=== PATIENT | male | born 1940 | race Hispanic/Latino ===

== ENCOUNTER 2019-02-23 16:21 | Inpatient (IN) | payer MEDICARE, OTHER ==
[2019-02-23] MEDS ORDERED: methylPREDNISolone Sod Succinate 125 MG/2 ML INJ IV ONE (16:31)
[2019-02-23] MEDS ORDERED: IPRATROPIUM 0.02% NEBU 2.5 ML IH ONE ×2 (16:31→17:29)
[2019-02-23] MEDS ORDERED: ALBUTEROL 2.5 MG/3 ML NEBU IH ONE ×2 (16:31→17:29)
[2019-02-23] MEDS ORDERED: MAGNESIUM SULFATE 2 GM/50 ML BAG IV ONE (16:31)
--- NOTE | 2019-02-23 16:35 | Event Note ---
Date: 02/23/19 78-year-old gentleman presenting with EMS for shortness of breath, cough and wheezing. Speaking in full sentences and denies physical pain. He is on systemic anticoagulation, reportedly eliquis As per verbal report from EMS, hypoxic in the field which improved with a nonrebreather. We will obtain basic laboratory studies, x-ray the chest, rectal temperature, EKG, this patient on BiPAP, initiate supportive care. Discussed plan of care with patient who verbalizes understanding and is amenable to this plan of care. Vital Signs 02/23/19 16:25 Pulse Rate 120 H Respiratory 30 H Rate Blood Pressure 162/122 O2 Sat by Pulse 98 Oximetry
[2019-02-23 16:53] LABS: Basophils # (Auto) 0.1 K/mm3 (0.0-0.1); Basophils % (Auto) 0.8 % (0.0-1.8); Eosinophils # (Auto) 0.3 K/mm3 (0.0-0.4); Eosinophils % (Auto) 3.3 % (0.0-4.3); Hematocrit 43.4 % (35.5-45.6); Hemoglobin 13.8 gm/dl (11.8-15.2); Lymphocytes # (Auto) 1.2 K/mm3 (1.2-5.4); Lymphocytes % (Auto) 14.5 % (13.4-35.0); Mean Corpuscular HGB Conc 32 % (32-34); Mean Corpuscular Volume 94 fl (84-94); Monocytes # (Auto) 0.4 K/mm3 (0.0-0.8); Monocytes % (Auto) 5.1 % (0.0-7.3); Platelet Count 242 K/mm3 (140-440); Red Blood Count 4.64 M/mm3 (3.65-5.03); Red Cell Distribution Width 17.3 % (13.2-15.2)
[2019-02-23 17:06] LABS: Partial Thromboplastin Time 30.8 Sec. (24.2-36.6)
[2019-02-23 17:07] LABS: INR 1.6 (0.87-1.13)
[2019-02-23 17:20] LABS: Albumin 3.9 g/dL (3.9-5); Calcium 9.5 mg/dL (8.4-10.2)
--- NOTE | 2019-02-23 17:32 | XRay Report ---
CHEST 1 VIEW 02/23/2019 4:36 PM INDICATION / CLINICAL INFORMATION: Dyspnea. COMPARISON: None available. FINDINGS: SUPPORT DEVICES: None. HEART / MEDIASTINUM: Cardiomegaly. LUNGS / PLEURA: There is bilateral perihilar predominant parenchymal opacification likely reflecting pulmonary edema. No pneumothorax. ADDITIONAL FINDINGS: No significant additional findings. IMPRESSION: 1. Findings suggesting probable CHF as described. Signer Name: Adair Pisano MD Signed: 02/23/2019 5:27 PM Workstation Name: [id number]
--- NOTE | 2019-02-23 18:49 | Emergency Department Report ---
HPI - General Chief Complaint: Dyspnea/Respdistress Time Seen by Provider: 02/23/19 17:20 - HPI HPI: Room 23 The pt is a 78 y/o M p/w a cc of SOB. The pt has a h/o COPDand states he's been SOB x 2-3 days. The pt states his sxs began to worsen last pm. Pt denies CP, cough or fever. In the ED the pt was placed on Bipap and experienced improvement. ED Past Medical Hx - Past Medical History Previous Medical History?: Yes Hx Hypertension: Yes Hx Congestive Heart Failure: Yes Hx Diabetes: Yes Hx COPD: Yes Additional medical history: AFIB - Surgical History Past Surgical History?: No Additional Surgical History: hernia - Family History Family history: no significant - Social History Smoking Status: Former Smoker (none x 1967) Substance Use Type: None ED Review of Systems ROS: Stated complaint: MEHRDAD Other details as noted in HPI Constitutional: denies: fever Eyes: denies: eye pain ENT: denies: throat pain Respiratory: shortness of breath. denies: cough Cardiovascular: denies: chest pain Endocrine: no symptoms reported Gastrointestinal: denies: abdominal pain Genitourinary: denies: dysuria Musculoskeletal: denies: back pain Neurological: denies: headache Physical Exam - Physical Exam Vital Signs: Vital Signs 02/23/19 02/23/19 02/23/19 16:25 16:38 16:45 Pulse Rate 120 H 109 H Pulse Rate [ Bilateral] Respiratory 30 H 30 H 19 Rate Respiratory Rate [Bilateral ] Blood Pressure 162/122 Blood Pressure 164/105 [Left] O2 Sat by Pulse 100 98 94 Oximetry 02/23/19 02/23/19 02/23/19 16:50 17:08 17:55 Pulse Rate 98 H 93 H Pulse Rate [ 123 H Bilateral] Respiratory 24 27 H Rate Respiratory 22 Rate [Bilateral ] Blood Pressure 135/86 Blood Pressure 141/98 [Left] O2 Sat by Pulse 100 98 Oximetry 02/23/19 02/23/19 17:58 18:22 Pulse Rate 94 H Pulse Rate [ 89 Bilateral] Respiratory 26 H Rate Respiratory 23 Rate [Bilateral ] Blood Pressure Blood Pressure 140/97 [Left] O2 Sat by Pulse 95 Oximetry Physical Exam: GEN: WD WN sitting on stretcher with Bipap in place HEENT: EOMI, NCAT NECK: Trachea midline, no stridor CV: rrr no m/r/g PULM: faint exp wheezes bilat ABD: S/NT/ND +BS SKIN: No diaphoresis NEURO: GCS 15 MS: no deformity ED Course Vital Signs 02/23/19 02/23/19 02/23/19 16:25 16:38 16:45 Pulse Rate 120 H 109 H Pulse Rate [ Bilateral] Respiratory 30 H 30 H 19 Rate Respiratory Rate [Bilateral ] Blood Pressure 162/122 Blood Pressure 164/105 [Left] O2 Sat by Pulse 100 98 94 Oximetry 02/23/19 02/23/19 02/23/19 16:50 17:08 17:55 Pulse Rate 98 H 93 H Pulse Rate [ 123 H Bilateral] Respiratory 24 27 H Rate Respiratory 22 Rate [Bilateral ] Blood Pressure 135/86 Blood Pressure 141/98 [Left] O2 Sat by Pulse 100 98 Oximetry 02/23/19 02/23/19 17:58 18:22 Pulse Rate 94 H Pulse Rate [ 89 Bilateral] Respiratory 26 H Rate Respiratory 23 Rate [Bilateral ] Blood Pressure Blood Pressure 140/97 [Left] O2 Sat by Pulse 95 Oximetry ED Medical Decision Making - Lab Data Result diagrams: 02/23/19 16:37 02/23/19 16:37 - Radiology Data Radiology results: report reviewed (CXR), image reviewed (CXR) interpreted by me: CXR- CM. no ptx [address] [address] XRay Report Signed Patient: YAKELIN KELSEY MR#: [id number] 0 : 1940 Acct:[id number] Age/Sex: 78 / M ADM Date: 02/23/19 Loc: ED Attending Dr: Ordering Physician: AGUSTO RASHID MD Date of Service: 02/23/19 Procedure(s): XR chest 1V ap Accession Number(s): [id number] cc: AGUSTO RASHID MD Fluoro Time In Minutes: CHEST 1 VIEW 02/23/2019 4:36 PM INDICATION / CLINICAL INFORMATION: Dyspnea. COMPARISON: None available. FINDINGS: SUPPORT DEVICES: None. HEART / MEDIASTINUM: Cardiomegaly. LUNGS / PLEURA: There is bilateral perihilar predominant parenchymal opacification likely reflecting pulmonary edema. No pneumothorax. ADDITIONAL FINDINGS: No significant additional findings. IMPRESSION: 1. Findings suggesting probable CHF as described. Signer Name: Adair Pisano MD Signed: 02/23/2019 5:27 PM Workstation Name: [id number] Transcribed By: GAYLE Dictated By: Adair Pisano MD Electronically Authenticated By: Adair Pisano MD Signed Date/Time: 02/23/191726 DD/ 26 TD/TT: - Differential Diagnosis COPD exacerbation, CHF exacerbation Critical care attestation.: If time is entered above; I have spent that time in minutes in the direct care of this critically ill patient, excluding procedure time. ED Disposition Clinical Impression: Shortness of breath, CHF exacerbation, COPD (chronic obstructive pulmonary disease), Hyperkalemia, Renal insufficiency Disposition: OP ADMIT IP TO THIS HOSP Is pt being admited?: Yes Does the pt Need Aspirin: Yes Condition: Fair Instructions: Chronic Obstructive Pulmonary Disease (ED) Time of Disposition: 18:52 (Hospitalist paged (Dr Dickinson))
[2019-02-23] MEDS ORDERED: FUROSEMIDE 40 MG/4 ML INJ IV ONE (18:57)
--- NOTE | 2019-02-23 20:31 | History and Physical Report ---
History of Present Illness Chief complaint: I cant breathe too good History of present illness: 78 YO Male with HTN, DM, COPD, Atrial Fib, CHF, Obesity Hypoventilation presents to ED for evaluation. Pt has experienced shortness of breath over the past 3 days with persistent symptoms over the same time frame. Pt acknowledges worsening shortness of breath, increased productive cough with clear sputum, and increased nebulizer use without relief. EMS notified, and upon arrival the patient was found to be in distress with a pulse oximetry of 80% on room air. Pt placed on supplemental oxygen and transported to [facility]. Pt seen and evaluated in ED and treated with repeated nebulizer therapy, with persistent symptoms as well as pulse of oximetry of 89%. Pt found to have Acute Hypoxemic Respiratory Failure and placed on NIPPV. Pt admitted to [facility] unit and treated with IV steroid therapy as well as empiric IV antibiotic therapy. Pt is short of breath and on BIPAP at time of my evaluation and is unable to provide detailed history to to inability to speak in complete sentences. No prior admissions for review. No medication listed for reconciliation at time of admission. Past History Past Medical History: other (see HPI) Past Surgical History: hernia repair Social history: single. denies: smoking, alcohol abuse, prescription drug abuse Family history: diabetes, hypertension Medications and Allergies Allergies Allergy/AdvReac Type Severity Reaction Status Date / Time gabapentin [From Gabarone] Allergy Unknown Verified 02/23/19 16:33 Review of Systems All systems: negative Constitutional: other (D) Respiratory: shortness of breath Exam - Constitutional Vitals: Temp Pulse Resp BP Pulse Ox 107 H 24 164/103 97 02/23/19 19:55 02/23/19 19:55 02/23/19 19:55 02/23/19 19:55 General appearance: Present: mild distress, cachectic - EENT Eyes: Present: PERRL ENT: hearing intact, clear oral mucosa - Neck Neck: Present: supple, normal ROM - Respiratory Respiratory effort: labored, accessory muscle use, stridor Respiratory: bilateral: diminished, rhonchi - Cardiovascular Heart Sounds: Present: S1 & S2. Absent: rub, click - Extremities Extremities: pulses symmetrical, No edema Peripheral Pulses: within normal limits - Abdominal General gastrointestinal: Present: soft, non-tender, non-distended, normal bowel sounds Male genitourinary: Present: normal - Integumentary Integumentary: Present: clear, warm, dry - Musculoskeletal Musculoskeletal: generalized weakness - Psychiatric Psychiatric: intact judgment & insight, agitated - Neurologic Neurologic: CNII-XII intact, moves all extremities Results - Labs CBC & Chem 7: 02/23/19 16:37 02/23/19 16:37 Labs: Abnormal lab results 02/23/19 02/23/19 02/23/19 Range/Units 16:37 16:37 16:37 RDW 17.3 H (13.2-15.2) % Seg Neutrophils % 76.3 H (40.0-70.0) % PT (12.2-14.9) Sec. INR (0.87-1.13) Potassium 5.3 H (3.6-5.0) mmol/L BUN 27 H (9-20) mg/dL Creatinine 1.9 H (0.8-1.5) mg/dL Glucose 301 H (75-100) mg/dL Lactic Acid 2.40 H* (0.7-2.0) mmol/L Magnesium 2.50 H (1.7-2.3) mg/dL Alkaline Phosphatase 144 H (35-129) units/L Total Creatine Kinase (55-170) units/L 02/23/19 02/23/19 Range/Units 16:37 16:37 RDW (13.2-15.2) % Seg Neutrophils % (40.0-70.0) % PT 18.8 H (12.2-14.9) Sec. INR 1.60 H (0.87-1.13) Potassium (3.6-5.0) mmol/L BUN (9-20) mg/dL Creatinine (0.8-1.5) mg/dL Glucose (75-100) mg/dL Lactic Acid (0.7-2.0) mmol/L Magnesium 2.50 H (1.7-2.3) mg/dL Alkaline Phosphatase (35-129) units/L Total Creatine Kinase 50 L (55-170) units/L Assessment and Plan - Patient Problems (1) Acute hypoxemic respiratory failure Current Visit: Yes Status: Acute Plan to address problem: Admit to [facility] unit, ABG, Chest X ray, pulse oximetry, NIPPV, nebulizer therapy, bnp. (2) COPD exacerbation Current Visit: Yes Status: Acute Plan to address problem: supplemental oxygen, chest x ray, nebulizer therapy, NIPPV, Iv steroid therapy, empiric antibiotic therapy. (3) HTN (hypertension) Current Visit: Yes Status: Acute Qualifiers: Hypertension type: essential hypertension Qualified Code(s): I10 - Essential (primary) hypertension Plan to address problem: Monitor BP q shift, continue medical management. (4) Diabetes Current Visit: Yes Status: Acute Plan to address problem: ADA diet, insulin, accu check, hypoglycemia protocol (5) Atrial fibrillation Current Visit: Yes Status: Acute Qualifiers: Atrial fibrillation type: unspecified Qualified Code(s): I48.91 - Unspecified atrial fibrillation Plan to address problem: Rate control, supportive care, remote telemetry monitoring, resume home medic ation. (6) CHF exacerbation Current Visit: No Status: Acute Qualifiers: Heart failure type: systolic Qualified Code(s): I50.23 - Acute on chronic systolic (congestive) heart failure Plan to address problem: BNP, supplemental oxygen, strict I/O, daily weight, bnp, thyroid panel, magnesium level, pulse oximetry, diuresis, afterload reduction, (7) DELMIS (acute kidney injury) Current Visit: Yes Status: Acute Plan to address problem: IVF resuscitation therapy, repeat bmp, monitor serum creatnine. (8) DVT prophylaxis Current Visit: Yes Status: Acute Plan to address problem: SCD to BLE while in bed, supportive care.
[2019-02-23] MEDS ORDERED: ONDANSETRON 4 MG/2 ML INJ IV PRN (20:33)
[2019-02-23] MEDS ORDERED: ACETAMINOPHEN 325 MG TAB PO PRN (20:33)
[2019-02-23] MEDS ORDERED: METOPROLOL TARTRATE 5 MG/5 ML INJ IV ONE ×2 (21:44→21:51)
[2019-02-23 22:54] LABS: Free T4 (Free Thyroxine) 0.81 ng/dL (0.76-1.46)
[2019-02-24] MEDS: INSULIN REGULAR, HUMAN 100 UNITS/1 ML SUB-Q SCH ×5 (00:53→23:18)
[2019-02-24] MEDS: FAMOTIDINE 10 MG TAB PO SCH ×3 (00:53→21:11)
[2019-02-24] MEDS: methylPREDNISolone Sod Succinate 40 MG/1 ML INJ IV SCH ×2 (01:07→12:36)
[2019-02-24] MEDS: METOPROLOL TARTRATE 25 MG TAB PO SCH ×3 (02:08→21:09)
[2019-02-24] MEDS: traMADol 50 MG TAB PO PRN ×2 (02:09→22:48)
[2019-02-24 05:16] LABS: Albumin 3.9 g/dL (3.9-5); Calcium 9.1 mg/dL (8.4-10.2)
[2019-02-24] MEDS ORDERED: METOPROLOL TARTRATE 25 MG TAB PO SCH ×2 (10:00→22:00)
[2019-02-24] MEDS: FINASTERIDE 5 MG TAB PO SCH (12:19)
[2019-02-24] MEDS: APIXABAN 5 MG TAB PO SCH ×2 (12:19→21:10)
[2019-02-24] MEDS: CHOLECALCIFEROL (VIT D3) 400 UNIT TAB PO SCH ×2 (12:19→21:11)
[2019-02-24] MEDS: FUROSEMIDE 40 MG TAB PO SCH (12:20)
[2019-02-24] MEDS: ASPIRIN 81 MG TAB CHEW PO SCH (12:20)
[2019-02-24] MEDS: TRIAMCINOLONE 0.1% CREAM 15 GM TP SCH ×2 (12:20→21:15)
[2019-02-24] MEDS: sulfaSALAzine 500 MG TAB PO SCH ×2 (12:20→21:09)
[2019-02-24] MEDS: AZITHROMYCIN 500 MG in SODIUM CHLORIDE 0.9% 250ML 250 ML IV SCH (12:41)
[2019-02-24] MEDS ORDERED: POLYETHYLENE GLYCOL PO PRN (13:27)
[2019-02-24] MEDS ORDERED: TRAMADOL HCL 50 MG PO SCH (13:30)
[2019-02-24] MEDS ORDERED: NON-FORMULARY EACH (Amlodipine 10 MG) PO SCH (13:30)
[2019-02-24] MEDS ORDERED: NON-FORMULARY EACH (Aspirin Baby Chew Tab 81 MG) PO SCH (13:30)
--- NOTE | 2019-02-24 13:54 | Progress Note ---
Assessment and Plan / Acute hypoxemic respiratory failure due to COPD and CHF exacerbation supplemental O2, pulse oximetry, NIPPV as needed, nebulizer therapy, / COPD exacerbation treat with supplemental oxygen, as needed and bedtime nebulizer therapy, NIPPV, Iv steroid therapy, empiric antibiotic therapy. / HTN (hypertension) Monitor BP q shift, continue medical management. Resume home meds / Diabetes ADA diet, insulin subqu, accu check, hypoglycemia protocol check a1c / Atrial fibrillation, chronic Rate control, supportive care, remote telemetry monitoring, resume home medication. start on eliquis /CHF exacerbation 2 d echo, supplemental oxygen, strict I/O, daily weight, bnp, thyroid panel, magnesium level, pulse oximetry, diuresis, afterload reduction, / DELMIS (acute kidney injury) - cardiorenal syndrome? cont diuresis, repeat bmp, monitor serum creatnine. consult nephro if no improvement / DVT prophylaxis SCD to BLE while in bed, supportive care. Subjective Date of service: 02/24/19 Interval history: patient seen and examined denies any chest pain BG >400 today breathing improved Objective - Constitutional Vitals: Vital Signs - 12hr 02/24/19 02/24/19 02/24/19 02:08 02:36 06:37 Temperature 97.9 F Pulse Rate 125 H 63 72 Respiratory 17 Rate Blood Pressure 137/94 151/88 O2 Sat by Pulse 97 99 Oximetry 02/24/19 02/24/19 02/24/19 07:29 07:53 09:17 Temperature 97.5 F L Pulse Rate 67 73 Respiratory 18 27 H Rate Blood Pressure 119/82 O2 Sat by Pulse 91 97 95 Oximetry General appearance: Present: mild distress, obese - EENT Eyes: PERRL, EOM intact ENT: hearing intact, clear oral mucosa Ears: bilateral: normal - Neck Neck: supple, normal ROM - Respiratory Respiratory effort: normal Respiratory: bilateral: diminished - Cardiovascular Rhythm: irregularly irregular Heart Sounds: Present: S1 & S2. Absent: gallop, rub Extremities: pulses intact, normal color, Full ROM Extremity abnormal: edema (trace) - Gastrointestinal General gastrointestinal: Present: soft, non-tender, non-distended, normal bowel sounds - Integumentary Integumentary: clear, warm, dry - Musculoskeletal Musculoskeletal: 1, strength equal bilaterally - Neurologic Neurologic: moves all extremities - Psychiatric Psychiatric: memory intact, appropriate mood/affect, intact judgment & insight - Labs CBC & Chem 7: 02/23/19 16:37 02/24/19 04:16 Labs: Abnormal lab results 02/23/19 02/23/19 02/23/19 Range/Units 16:37 16:37 16:37 RDW 17.3 H (13.2-15.2) % Seg Neutrophils % 76.3 H (40.0-70.0) % PT (12.2-14.9) Sec. INR (0.87-1.13) POC ABG pCO2 (35-45) Potassium 5.3 H (3.6-5.0) mmol/L BUN 27 H (9-20) mg/dL Creatinine 1.9 H (0.8-1.5) mg/dL Glucose 301 H (75-100) mg/dL POC Glucose (70-105) Hemoglobin A1c (4-6) % Lactic Acid 2.40 H* (0.7-2.0) mmol/L Magnesium 2.50 H (1.7-2.3) mg/dL Alkaline Phosphatase 144 H (35-129) units/L Total Creatine Kinase (55-170) units/L NT-Pro-B Natriuret Pep (0-900) pg/mL 02/23/19 02/23/19 02/23/19 Range/Units 16:37 16:37 16:37 RDW (13.2-15.2) % Seg Neutrophils % (40.0-70.0) % PT 18.8 H (12.2-14.9) Sec. INR 1.60 H (0.87-1.13) POC ABG pCO2 (35-45) Potassium (3.6-5.0) mmol/L BUN (9-20) mg/dL Creatinine (0.8-1.5) mg/dL Glucose (75-100) mg/dL POC Glucose (70-105) Hemoglobin A1c (4-6) % Lactic Acid (0.7-2.0) mmol/L Magnesium 2.50 H (1.7-2.3) mg/dL Alkaline Phosphatase (35-129) units/L Total Creatine Kinase 50 L (55-170) units/L NT-Pro-B Natriuret Pep 29944 H (0-900) pg/mL 02/23/19 02/23/19 02/24/19 Range/Units 21:45 23:59 04:16 RDW (13.2-15.2) % Seg Neutrophils % (40.0-70.0) % PT (12.2-14.9) Sec. INR (0.87-1.13) POC ABG pCO2 46.9 H (35-45) Potassium (3.6-5.0) mmol/L BUN 32 H (9-20) mg/dL Creatinine 2.0 H (0.8-1.5) mg/dL Glucose 422 H (75-100) mg/dL POC Glucose 398 H (70-105) Hemoglobin A1c (4-6) % Lactic Acid (0.7-2.0) mmol/L Magnesium (1.7-2.3) mg/dL Alkaline Phosphatase 132 H (35-129) units/L Total Creatine Kinase (55-170) units/L NT-Pro-B Natriuret Pep (0-900) pg/mL 02/24/19 02/24/19 02/24/19 Range/Units 07:36 11:39 11:54 RDW (13.2-15.2) % Seg Neutrophils % (40.0-70.0) % PT (12.2-14.9) Sec. INR (0.87-1.13) POC ABG pCO2 (35-45) Potassium (3.6-5.0) mmol/L BUN (9-20) mg/dL Creatinine (0.8-1.5) mg/dL Glucose (75-100) mg/dL POC Glucose 392 H 420 H (70-105) Hemoglobin A1c 7.5 H (4-6) % Lactic Acid (0.7-2.0) mmol/L Magnesium (1.7-2.3) mg/dL Alkaline Phosphatase (35-129) units/L Total Creatine Kinase (55-170) units/L NT-Pro-B Natriuret Pep (0-900) pg/mL
[2019-02-24] MEDS ORDERED: FINASTERIDE 5 MG TAB PO SCH (14:00)
[2019-02-24] MEDS ORDERED: POLYETHYLENE GLYCOL 3350 17 GM POWDER PO PRN (14:04)
[2019-02-24] MEDS ORDERED: ASPIRIN 81 MG TAB CHEW PO SCH (15:00)
[2019-02-24] MEDS: amLODIPine 10 MG TAB PO SCH (15:44)
[2019-02-24] MEDS ORDERED: INSULIN NPH, HUMAN 100 UNIT/1 ML SUB-Q SCH (17:00)
[2019-02-24] MEDS: PREGABALIN 25 MG CAP PO SCH (21:09)
[2019-02-24] MEDS ORDERED: NON-FORMULARY EACH (Atorvastatin 10 MG) PO SCH (22:00)
[2019-02-24] MEDS ORDERED: SULFASALAZINE 500 MG PO SCH (22:00)
[2019-02-24] MEDS ORDERED: PREGABALIN 25 MG CAP PO SCH (22:00)
[2019-02-24] MEDS ORDERED: CHOLECALCIFEROL (VIT D3) 400 UNIT TAB PO SCH (22:00)
[2019-02-24] MEDS ORDERED: NON-FORMULARY EACH (Eliquis 5 MG) PO SCH (22:00)
[2019-02-24] MEDS ORDERED: APIXABAN 5 MG TAB PO SCH (22:00)
[2019-02-24] MEDS ORDERED: ZOLPIDEM TARTRATE 5 MG PO SCH (22:00)
[2019-02-24] MEDS ORDERED: PREGABALIN 50 MG PO SCH (22:00)
[2019-02-24] MEDS ORDERED: VITAMIN D3 PO SCH (22:00)
[2019-02-24] MEDS ORDERED: NON-FORMULARY EACH (Metoprolol Tartrate 25 MG) PO SCH (22:00)
[2019-02-24] MEDS ORDERED: TRIAMCINOLONE ACETON 0.1% TP SCH (22:00)
[2019-02-24] MEDS: ZOLPIDEM 5 MG TAB PO PRN (22:51)
[2019-02-25] MEDS ORDERED: INSULIN GLARGINE HUM REC ANLOG 20 UNIT SUB-Q SCH (00:15)
[2019-02-25] MEDS: methylPREDNISolone Sod Succinate 40 MG/1 ML INJ IV SCH ×2 (00:38→14:24)
[2019-02-25 09:40] LABS: Calcium 9.2 mg/dL (8.4-10.2)
[2019-02-25] MEDS ORDERED: NON-FORMULARY EACH (Finasteride 5 MG) PO SCH (10:00)
--- NOTE | 2019-02-25 11:10 | Consultation ---
History of Present Illness - Reason for Consult Consult date: 02/25/19 acute renal failure - History of Present Illness The patient is a 78 YO male with history significant for Obeisty, DM type 2, HTN, COPD, Atrial Fib, CHF, ?BPH, CKD and Obesity Hypoventilation presented to [facility] ED on 02/23 with c/o worsening shortness of breath of 3 days duration. Pt acknowledges cough with increased clear sputum and increased nebulizer use without relief. EMS found him with pulse oximetry of 80% on room air. Pt found to have Acute Hypoxemic Respiratory Failure and placed on NIPPV. Pt admitted to [facility] unit for further management. He was told in the past that he has kidney problem. Patient denies any fever, chills, N, V, D, abd pain, dysuria, hematuria, cp, leg swelling dizziness, syncope or jaundice. Creatinine is 2.1 today. Nephrology was consulted for further evaluation. Past History Past Medical History: arrhythmia, COPD, diabetes, heart failure, hypertension, hyperlipidemia, renal failure, other (see HPI) Past Surgical History: hernia repair Social history: single. denies: smoking, alcohol abuse, prescription drug abuse Family history: diabetes, hypertension Medications and Allergies Allergies Allergy/AdvReac Type Severity Reaction Status Date / Time gabapentin [From Gabarone] Allergy Unknown Verified 02/23/19 16:33 Home Medications Medication Instructions Recorded Confirmed Last Taken Type Aspirin BABY CHEW TAB 81 mg PO QDAY 02/23/19 02/24/19 Unknown History AtorvaSTATin 10 mg PO QHS 02/23/19 02/24/19 Unknown History Eliquis 5 mg PO BID 02/23/19 02/24/19 Unknown History Finasteride 5 mg PO QDAY 02/23/19 02/24/19 Unknown History Furosemide 80 mg PO QDAY 02/23/19 02/24/19 Unknown History Mapap 650 mg PO Q4H PRN 02/23/19 02/24/19 Unknown History Metoprolol Tartrate 25 mg PO BID 02/23/19 02/24/19 Unknown History Polyethylene Glycol 3350 17 gram PO QDAY PRN 02/23/19 02/24/19 Unknown History Pregabalin 50 mg PO QHS 02/23/19 02/24/19 Unknown History Ranitidine HCl 150 mg PO QDAY 02/23/19 02/24/19 Unknown History Robafen Dm Cough Syrup 10 ml PO Q4H PRN 02/23/19 02/24/19 Unknown History Tramadol HCl 50 mg PO QDAY 02/23/19 02/24/19 Unknown History Triamcinolone Aceton 0.1% (Nf) 1 applic TP BID 02/23/19 02/24/19 Unknown History Vitamin D3 400 UNIT TAB 400 units PO BID 02/23/19 02/24/19 Unknown History Zolpidem Tartrate ER 5 mg PO QHS 02/23/19 02/24/19 Unknown History amLODIPine 10 mg PO QDAY 02/23/19 02/24/19 Unknown History sulfaSALAzine 500 mg PO BID 02/23/19 02/24/19 Unknown History Insulin Glargine,Hum.rec.anlog 40 units SUB-Q BID 02/24/19 02/24/19 02/22/19 History Lispro Insulin [HumaLOG] 34 unit SQ AC 02/24/19 02/24/19 02/22/19 History Active Meds: Active Medications Acetaminophen (Tylenol) 650 mg PO Q4H PRN PRN Reason: Pain MILD(1-3)/Fever >100.5/TRIMBLE Amlodipine Besylate (Amlodipine) 10 mg PO DAILY [facility] Last Admin: 02/24/19 15:44 Dose: Not Given Documented by: Apixaban (Eliquis) 5 mg PO BID [facility]; Protocol Last Admin: 02/24/19 21:10 Dose: 5 mg Documented by: Aspirin (Baby Aspirin) 81 mg PO QDAY [facility] Last Admin: 02/24/19 12:20 Dose: 81 mg Documented by: Atorvastatin Calcium (Atorvastatin) 10 mg PO QHS [facility] Last Admin: 02/24/19 21:10 Dose: 10 mg Documented by: Cholecalciferol (Vitamin D3) 400 unit PO BID [facility] Last Admin: 02/24/19 21:11 Dose: 400 unit Documented by: Famotidine (Pepcid) 10 mg PO BID [facility] Last Admin: 02/24/19 21:11 Dose: 10 mg Documented by: Finasteride (Proscar) 5 mg PO QDAY [facility] Last Admin: 02/24/19 12:19 Dose: 5 mg Documented by: Furosemide (Lasix) 80 mg PO QDAY [facility] Last Admin: 02/24/19 12:20 Dose: 80 mg Documented by: Azithromycin 500 mg/ Sodium (Chloride) 250 mls @ 250 mls/hr IV Q24HR [facility]; Protocol Stop: 02/28/19 10:59 Last Admin: 02/24/19 12:41 Dose: 250 mls/hr Documented by: Insulin Glargine (Lantus) 20 units SUB-Q BID [facility] Insulin Human Lispro (Humalog) 15 unit SUB-Q AC [facility] Insulin Human Regular (Humulin R) 0 units SUB-Q ACHS [facility]; Protocol Last Admin: 02/24/19 23:18 Dose: 8 units Documented by: Methylprednisolone Sodium Succinate (Solu-Medrol) 40 mg IV Q12H [facility] Last Admin: 02/25/19 00:38 Dose: Not Given Documented by: Metoprolol Tartrate (Metoprolol) 25 mg PO BID [facility] Last Admin: 02/24/19 21:09 Dose: Not Given Documented by: Ondansetron HCl (Zofran) 4 mg IV Q8H PRN PRN Reason: Nausea And Vomiting Polyethylene Glycol (Miralax 3350) 17 gm PO QDAY PRN PRN Reason: Constipation Pregabalin (Pregabalin) 50 mg PO QHS [facility] Last Admin: 02/24/19 21:09 Dose: 50 mg Documented by: Sodium Chloride (Sodium Chloride Flush Syringe 10 Ml) 10 ml IV BID [facility] Last Admin: 02/24/19 21:16 Dose: 10 ml Documented by: Sodium Chloride (Sodium Chloride Flush Syringe 10 Ml) 10 ml IV PRN PRN PRN Reason: LINE FLUSH Sulfasalazine (Azulfidine) 500 mg PO BID [facility] Last Admin: 02/24/19 21:09 Dose: 500 mg Documented by: Tramadol HCl (Ultram) 50 mg PO QDAY PRN PRN Reason: Pain, Moderate (4-6) Last Admin: 02/24/19 22:48 Dose: 50 mg Documented by: Triamcinolone Acetonide (Kenalog) 1 applic TP BID [facility] Last Admin: 02/24/19 21:15 Dose: 1 applic Documented by: Zolpidem Tartrate (Ambien) 5 mg PO QHS PRN PRN Reason: Sleep Last Admin: 02/24/19 22:51 Dose: 5 mg Documented by: Review of Systems Constitutional: no weight loss, no weight gain, no fever, no chills, no anorexia, no weakness Cardiovascular: orthopnea, shortness of breath, dyspnea on exertion, high blood pressure, no chest pain, no palpitations, no edema, no syncope, no lightheadedness, no leg edema Respiratory: cough, cough with sputum, shortness of breath, dyspnea on exertion, no hemoptysis Gastrointestinal: no abdominal pain, no nausea, no vomiting, no diarrhea, no melena Genitourinary Male: no dysuria, no hematuria Integumentary: no rash, no redness, no sores, no jaundice Neurological: no paralysis, no weakness, no convulsions, no aphasia, no change in speech, no change in mentation, no confusion, no memory loss Exam - Vital Signs Vital signs: Vital Signs Pulse Ox 95 02/23/19 16:22 - General Appearance General appearance: well-developed, well-nourished, appears stated age, obese, other (not in distress) EENT: ATNC, PERRL, hearing intact, vision intact Neck: Present: neck supple, trachea midline Respiratory: Clear to Ascultation Heart: S1S2, no murmurs Gastrointestinal: Present: normoactive bowel sounds, obese. Absent: tenderness, distended Integumentary: other (b/l leg scratch cody) Neurologic: no focal deficit, no asterixis, alert and oriented x3 Musculoskeletal: Present: other (no edema) Results - Lab Results 02/23/19 16:37 02/25/19 09:14 Most recent lab results Calcium 9.2 mg/dL (8.4-10.2) 02/25/19 09:14 Magnesium 2.50 mg/dL (1.7-2.3) H 02/23/19 16:37 Magnesium 2.50 mg/dL (1.7-2.3) H 02/23/19 16:37 - Image Kidney/bladder ultrasound: pending Assessment and Plan 1. Renal insufficiency: Likely CKD stage 3 / 4. Doubt DELMIS. Urine studies and Renal US ordered. Monitor renal function. Avoid nephrotoxic agents. Meds dosage based on GFR. 2. FEN: Volume overload, on Lasix. Monitor lytes. 3. Acute hypoxemic respiratory failure: Combination of due to COPD and CHF exacerbation. 4. CHF exacerbation: Strict I/O, daily weight, diuresis, afterload reduction. 5. chronic Atrial fibrillation: Rate control. Continue Eliquis. 6. HTN. 7. Diabetes mellitus type 2.
[2019-02-25] MEDS: sulfaSALAzine 500 MG TAB PO SCH ×2 (11:48→22:38)
[2019-02-25] MEDS: CHOLECALCIFEROL (VIT D3) 400 UNIT TAB PO SCH ×2 (11:49→22:38)
[2019-02-25] MEDS: FAMOTIDINE 10 MG TAB PO SCH ×2 (11:50→22:33)
[2019-02-25] MEDS: APIXABAN 5 MG TAB PO SCH ×2 (11:51→22:34)
[2019-02-25] MEDS: FUROSEMIDE 40 MG TAB PO SCH (11:51)
[2019-02-25] MEDS: amLODIPine 10 MG TAB PO SCH (11:51)
[2019-02-25] MEDS: ASPIRIN 81 MG TAB CHEW PO SCH (11:52)
[2019-02-25] MEDS: FINASTERIDE 5 MG TAB PO SCH (11:52)
[2019-02-25] MEDS: METOPROLOL TARTRATE 25 MG TAB PO SCH ×2 (11:53→22:35)
[2019-02-25] MEDS: traMADol 50 MG TAB PO PRN (11:53)
[2019-02-25] MEDS: INSULIN GLARGINE 100 UNITS/ML SUB-Q SCH ×2 (11:55→22:30)
[2019-02-25] MEDS: INSULIN LISPRO 100 UNIT/ML SUB-Q SCH ×3 (12:06→17:50)
[2019-02-25] MEDS: TRIAMCINOLONE 0.1% CREAM 15 GM TP SCH ×2 (12:09→22:30)
[2019-02-25] MEDS: INSULIN REGULAR, HUMAN 100 UNITS/1 ML SUB-Q SCH ×4 (14:10→22:31)
--- NOTE | 2019-02-25 15:27 | Progress Note ---
Assessment and Plan / Acute hypoxemic respiratory failure due to COPD and CHF exacerbation supplemental O2, pulse oximetry, NIPPV as needed, nebulizer therapy, / COPD exacerbation treat with supplemental oxygen, as needed and bedtime nebulizer therapy, NIPPV, Iv steroid therapy, empiric antibiotic therapy. / HTN (hypertension) Monitor BP q shift, continue medical management. Resume home meds / Diabetes cont ADA diet, insulin subqu, accu check, hypoglycemia protocol / Atrial fibrillation, chronic Rate control, supportive care, remote telemetry monitoring, resume home medication. start on eliquis /CHF exacerbation ordered 2 d echo, supplemental oxygen, strict I/O, daily weight, pulse oximetry, diuresis, afterload reduction, / DELMIS (acute kidney injury) - cardiorenal syndrome? vs CKD cont diuresis, repeat bmp, monitor serum creatnine. consulted nephro / DVT prophylaxis SCD to BLE while in bed, supportive care. Brief History: The patient is a 78 YO male with history significant for Obeisty, DM type 2, HTN, COPD, Atrial Fib, CHF, CKD and Obesity Hypoventilation presented to [facility] ED on 02/23 with c/o worsening shortness of breath of 3 days duration. EMS found him with pulse oximetry of 80% on room air. Pt found to have Acute Hypoxemic Respiratory Failure and placed on NIPPV. Pt admitted to [facility] unit for further management. Subjective Date of service: 02/25/19 Interval history: patient seen and examined denies any chest pain breathing improved, BG remained elevated Objective - Exam Narrative Exam: General appearance: Present: mild distress, obese - EENT Eyes: PERRL, EOM intact ENT: hearing intact, clear oral mucosa Ears: bilateral: normal - Neck Neck: supple, normal ROM - Respiratory Respiratory effort: normal Respiratory: bilateral: diminished - Cardiovascular Rhythm: irregularly irregular Heart Sounds: Present: S1 & S2. Absent: gallop, rub Extremities: pulses intact, normal color, Full ROM Extremity abnormal: edema (trace) - Gastrointestinal General gastrointestinal: Present: soft, non-tender, non-distended, normal bowel sounds - Integumentary Integumentary: clear, warm, dry - Musculoskeletal Musculoskeletal: 1, strength equal bilaterally - Neurologic Neurologic: moves all extremities - Psychiatric Psychiatric: memory intact, appropriate mood/affect, intact judgment & insight - Constitutional Vitals: Vital Signs - 12hr 02/25/19 02/25/19 08:04 09:14 Temperature 97.4 F L Pulse Rate 63 Respiratory 23 Rate Blood Pressure 141/93 O2 Sat by Pulse 100 95 Oximetry - Labs CBC & Chem 7: 02/23/19 16:37 02/25/19 09:14 Labs: Abnormal lab results 02/24/19 02/24/19 02/25/19 Range/Units 16:25 22:54 09:14 BUN 40 H (9-20) mg/dL Creatinine 2.1 H (0.8-1.5) mg/dL Glucose 251 H (75-100) mg/dL POC Glucose 447 H 412 H (70-105) 02/25/19 Range/Units 11:20 BUN (9-20) mg/dL Creatinine (0.8-1.5) mg/dL Glucose (75-100) mg/dL POC Glucose 332 H (70-105)
--- NOTE | 2019-02-25 16:15 | Ultrasound Report ---
ULTRASOUND RENAL INDICATION: Acute renal failure.. COMPARISON: No relevant prior imaging study available. FINDINGS: RIGHT KIDNEY: Size: 9.3 cm. Echogenicity: Mild Increased echogenicity. Cortical thickness: Normal. Stones: None. Hydronephrosis: None. Cyst or mass: None. LEFT KIDNEY: Size: 9.5 cm. Echogenicity: Mild Increased echogenicity. Cortical thickness: Normal. Stones: None. Hydronephrosis: None. Cyst or mass: None. Urinary Bladder: No significant abnormality. Free Fluid: None. Additional Findings: There is hepatosplenomegaly. The spleen measures 14.7 cm in length. The liver me asures 19.7 cm. IMPRESSION 1. Kidneys are mildly echogenic characteristic of medical renal disease. There is no hydronephrosis. 2. There is hepatosplenomegaly.. Signer Name: Dallas Dee MD Signed: 02/25/2019 4:11 PM Workstation Name: [id number]
[2019-02-25] MEDS: AZITHROMYCIN 500 MG in SODIUM CHLORIDE 0.9% 250ML 250 ML IV SCH (17:36)
[2019-02-25] MEDS: ZOLPIDEM 5 MG TAB PO PRN (22:30)
[2019-02-25] MEDS: PREGABALIN 25 MG CAP PO SCH (22:34)
[2019-02-26] MEDS: methylPREDNISolone Sod Succinate 40 MG/1 ML INJ IV SCH ×2 (00:42→12:56)
[2019-02-26] MEDS: INSULIN REGULAR, HUMAN 100 UNITS/1 ML SUB-Q SCH ×4 (08:12→23:04)
[2019-02-26] MEDS: INSULIN LISPRO 100 UNIT/ML SUB-Q SCH ×3 (08:14→17:50)
--- NOTE | 2019-02-26 09:03 | Progress Note ---
Assessment and Plan 1. Renal insufficiency: Likely CKD stage 3 / 4. Renal US negative for hydronephrosis. Urine studies ordered. Renal function is stable. Monitor renal function. Avoid nephrotoxic agents. Meds dosage based on GFR. 2. FEN: Volume overload, on Lasix. Monitor lytes. 3. Acute hypoxemic respiratory failure: Combination of due to COPD and CHF exacerbation. 4. CHF exacerbation: Strict I/O, daily weight, diuresis, afterload reduction. 5. Atrial fibrillation: Rate control. On Eliquis. 6. HTN. 7. Diabetes mellitus type 2. Examination: General appearance: well-developed, well-nourished, appears stated age, obese, not in distress HEENT: ATNC, BRETT, hearing intact, vision intact Neck: neck supple, trachea midline Respiratory: Clear to Ascultation Heart: S1S2, no murmurs Gastrointestinal: normoactive bowel sounds, not tender Integumentary: b/l leg scratch cody Neurologic: no focal deficit, no asterixis, alert and oriented x3 Ext: no edema Subjective Date of service: 02/26/19 Interval history: Patient was seen and examined at the bedside. Objective - Vital Signs Vital signs: Vital Signs - 12hr 02/25/19 02/26/19 02/26/19 22:00 00:00 01:42 Temperature Pulse Rate 89 78 89 Pulse Rate [ 107 H Left Radial] Respiratory 30 H Rate Blood Pressure Blood Pressure [Left] O2 Sat by Pulse 98 98 Oximetry 02/26/19 02/26/19 02:46 07:42 Temperature 98.6 F 97.5 F L Pulse Rate 90 Pulse Rate [ Left Radial] Respiratory 20 22 Rate Blood Pressure 128/90 Blood Pressure 145/95 [Left] O2 Sat by Pulse 98 Oximetry - Lab 02/23/19 16:37 02/26/19 05:53 Most recent lab results Calcium 9.0 mg/dL (8.4-10.2) 02/26/19 05:53 Phosphorus 3.80 mg/dL (2.5-4.5) 02/26/19 05:53 Magnesium 2.50 mg/dL (1.7-2.3) H 02/23/19 16:37 Magnesium 2.50 mg/dL (1.7-2.3) H 02/23/19 16:37 Medications & Allergies - Medications Allergies/Adverse Reactions: Allergies gabapentin [From Gabarone] Allergy (Verified 02/23/19 16:33) Unknown Home Medications: Home Medications Medication Instructions Recorded Confirmed Last Taken Type Aspirin BABY CHEW TAB 81 mg PO QDAY 02/23/19 02/24/19 Unknown History AtorvaSTATin 10 mg PO QHS 02/23/19 02/24/19 Unknown History Eliquis 5 mg PO BID 02/23/19 02/24/19 Unknown History Finasteride 5 mg PO QDAY 02/23/19 02/24/19 Unknown History Furosemide 80 mg PO QDAY 02/23/19 02/24/19 Unknown History Mapap 650 mg PO Q4H PRN 02/23/19 02/24/19 Unknown History Metoprolol Tartrate 25 mg PO BID 02/23/19 02/24/19 Unknown History Polyethylene Glycol 3350 17 gram PO QDAY PRN 02/23/19 02/24/19 Unknown History Pregabalin 50 mg PO QHS 02/23/19 02/24/19 Unknown History Ranitidine HCl 150 mg PO QDAY 02/23/19 02/24/19 Unknown History Robafen Dm Cough Syrup 10 ml PO Q4H PRN 02/23/19 02/24/19 Unknown History Tramadol HCl 50 mg PO QDAY 02/23/19 02/24/19 Unknown History Triamcinolone Aceton 0.1% (Nf) 1 applic TP BID 02/23/19 02/24/19 Unknown History Vitamin D3 400 UNIT TAB 400 units PO BID 02/23/19 02/24/19 Unknown History Zolpidem Tartrate ER 5 mg PO QHS 02/23/19 02/24/19 Unknown History amLODIPine 10 mg PO QDAY 02/23/19 02/24/19 Unknown History sulfaSALAzine 500 mg PO BID 02/23/19 02/24/19 Unknown History Insulin Glargine,Hum.rec.anlog 40 units SUB-Q BID 02/24/19 02/24/19 02/22/19 History Lispro Insulin [HumaLOG] 34 unit SQ AC 02/24/19 02/24/19 02/22/19 History Active Medications: Generic Name Dose Route Start Last Admin Trade Name Freq PRN Reason Stop Dose Admin Acetaminophen 650 mg 02/23/19 20:33 Tylenol PO Q4H PRN Pain MILD(1-3)/Fever >100.5/TRIMBLE Amlodipine Besylate 10 mg 02/24/19 14:00 02/25/19 11:51 Amlodipine PO 10 mg DAILY DOLLY Administration Apixaban 5 mg 02/24/19 10:00 02/25/19 22:34 Eliquis PO 5 mg BID DOLLY Administration Protocol Aspirin 81 mg 02/24/19 10:00 02/25/19 11:52 Baby Aspirin PO 81 mg QDAY DO[facility] Administration Atorvastatin Calcium 10 mg 02/24/19 22:00 02/25/19 22:34 Atorvastatin PO 10 mg QHS DOLLY Administration Cholecalciferol 400 unit 02/24/19 10:00 02/25/19 22:38 Vitamin D3 PO 400 unit BID DOLLY Administration Famotidine 10 mg 02/23/19 22:00 02/25/19 22:33 Pepcid PO 10 mg BID DOLLY Administration Finasteride 5 mg 02/24/19 10:00 02/25/19 11:52 Proscar PO 5 mg QDAY DO[facility] Administration Furosemide 80 mg 02/24/19 10:00 02/25/19 11:51 Lasix PO 80 mg QDAY DO[facility] Administration Azithromycin 500 mg/ Sodium 250 mls @ 250 mls/hr 02/24/19 10:00 02/25/19 17:36 Chloride IV 02/28/19 10:59 250 mls/hr Q24HR DO[facility] Administration Protocol Insulin Glargine 20 units 02/25/19 10:00 02/25/19 22:30 Lantus SUB-Q 20 units BID DOLLY Administration Insulin Human Lispro 15 unit 02/25/19 07:30 02/26/19 08:14 Humalog SUB-Q 15 unit AC DO[facility] Administration Insulin Human Regular 0 units 02/23/19 22:00 02/26/19 08:12 Humulin R SUB-Q 3 units ACHS [facility] Administration Protocol Methylprednisolone Sodium Succinate 40 mg 02/24/19 00:00 02/26/19 00:42 Solu-Medrol IV Not Given Q12H [facility] Metoprolol Tartrate 25 mg 02/24/19 02:15 02/25/19 22:35 Metoprolol PO 25 mg BID DOLLY Administration Ondansetron HCl 4 mg 02/23/19 20:33 Zofran IV Q8H PRN Nausea And Vomiting Polyethylene Glycol 17 gm 02/24/19 14:04 Miralax 3350 PO QDAY PRN Constipation Pregabalin 50 mg 02/24/19 22:00 02/25/19 22:34 Pregabalin PO 50 mg QHS [facility] Administration Sodium Chloride 10 ml 02/23/19 22:00 02/25/19 22:36 Sodium Chloride Flush Syringe 10 Ml IV 10 ml BID DOLLY Administration Sodium Chloride 10 ml 02/23/19 20:33 Sodium Chloride Flush Syringe 10 Ml IV PRN PRN LINE FLUSH Sulfasalazine 500 mg 02/24/19 10:00 02/25/19 22:38 Azulfidine PO 500 mg BID DOLLY Administration Tramadol HCl 50 mg 02/24/19 01:27 02/25/19 11:53 Ultram PO 50 mg QDAY PRN Administration Pain, Moderate (4-6) Triamcinolone Acetonide 1 applic 02/24/19 10:00 02/25/19 22:30 Kenalog TP 1 applic BID DO[facility] Administration Zolpidem Tartrate 5 mg 02/24/19 01:31 02/25/19 22:30 Ambien PO 5 mg QHS PRN Administration Sleep
[2019-02-26] MEDS: FAMOTIDINE 10 MG TAB PO SCH ×2 (10:48→22:01)
[2019-02-26] MEDS: FUROSEMIDE 40 MG TAB PO SCH (10:48)
[2019-02-26] MEDS: FINASTERIDE 5 MG TAB PO SCH (10:48)
[2019-02-26] MEDS: CHOLECALCIFEROL (VIT D3) 400 UNIT TAB PO SCH ×2 (10:49→22:02)
[2019-02-26] MEDS: METOPROLOL TARTRATE 25 MG TAB PO SCH ×2 (10:50→22:02)
[2019-02-26] MEDS: INSULIN GLARGINE 100 UNITS/ML SUB-Q SCH ×2 (10:50→23:05)
[2019-02-26] MEDS: amLODIPine 10 MG TAB PO SCH (10:50)
[2019-02-26] MEDS: ASPIRIN 81 MG TAB CHEW PO SCH (10:51)
[2019-02-26] MEDS: TRIAMCINOLONE 0.1% CREAM 15 GM TP SCH ×2 (10:52→22:05)
[2019-02-26] MEDS: AZITHROMYCIN 500 MG in SODIUM CHLORIDE 0.9% 250ML 250 ML IV SCH (10:58)
[2019-02-26] MEDS: sulfaSALAzine 500 MG TAB PO SCH ×2 (11:05→22:01)
[2019-02-26] MEDS: traMADol 50 MG TAB PO PRN ×2 (11:14→22:10)
[2019-02-26] MEDS: APIXABAN 5 MG TAB PO SCH ×3 (11:22→22:02)
--- NOTE | 2019-02-26 13:10 | Consultation ---
History of Present Illness Consult date: 02/26/19 Requesting physician: TAPAN GOODRICH Consult reason: congestive heart failure History of present illness: The patient is a 78 YO male with a past medical history of atrial fibrillation, anticoagulated with Eliquis, "congestive heart failure", HTN, DM, COPD, CKD, obesity. He states that he is regularly followed by [facility] cardi[facility]. He presented with c/o progressively worsening SOB for 2 days prior to arrival. He denies any chest pain, palpitations, n/v, diaphoresis, dizziness or syncope. EMS found him with pulse oximetry of 80% on room air. He has subsequently been diagnosed with acute respiratory failure, COPD exacerbation, renal insufficiency (CKD stage III/IV suspected), acute heart failure. He underwent echo which showed EF 25- 50%, mild dilation of ascending aorta, LA severely dilated, RA mod to severely dilated, mild MR, mild to mod TR, RV mod dilated, severe pulm HTN with RVSP 73mmHg. Past History Past Medical History: atrial fib, COPD, diabetes, heart failure, hypertension, hyperlipidemia, renal failure Past Surgical History: hernia repair Social history: smoking (smoked for 4-6 years in 1960s). denies: alcohol abuse, prescription drug abuse Family history: diabetes, hypertension Medications and Allergies Allergies Allergy/AdvReac Type Severity Reaction Status Date / Time gabapentin [From Gabarone] Allergy Unknown Verified 02/23/19 16:33 Home Medications Medication Instructions Recorded Confirmed Last Taken Type Aspirin BABY CHEW TAB 81 mg PO QDAY 02/23/19 02/24/19 Unknown History AtorvaSTATin 10 mg PO QHS 02/23/19 02/24/19 Unknown History Eliquis 5 mg PO BID 02/23/19 02/24/19 Unknown History Finasteride 5 mg PO QDAY 02/23/19 02/24/19 Unknown History Furosemide 80 mg PO QDAY 02/23/19 02/24/19 Unknown History Mapap 650 mg PO Q4H PRN 02/23/19 02/24/19 Unknown History Metoprolol Tartrate 25 mg PO BID 02/23/19 02/24/19 Unknown History Polyethylene Glycol 3350 17 gram PO QDAY PRN 02/23/19 02/24/19 Unknown History Pregabalin 50 mg PO QHS 02/23/19 02/24/19 Unknown History Ranitidine HCl 150 mg PO QDAY 02/23/19 02/24/19 Unknown History Robafen Dm Cough Syrup 10 ml PO Q4H PRN 02/23/19 02/24/19 Unknown History Tramadol HCl 50 mg PO QDAY 02/23/19 02/24/19 Unknown History Triamcinolone Aceton 0.1% (Nf) 1 applic TP BID 02/23/19 02/24/19 Unknown History Vitamin D3 400 UNIT TAB 400 units PO BID 02/23/19 02/24/19 Unknown History Zolpidem Tartrate ER 5 mg PO QHS 02/23/19 02/24/19 Unknown History amLODIPine 10 mg PO QDAY 02/23/19 02/24/19 Unknown History sulfaSALAzine 500 mg PO BID 02/23/19 02/24/19 Unknown History Insulin Glargine,Hum.rec.anlog 40 units SUB-Q BID 02/24/19 02/24/19 02/22/19 History Lispro Insulin [HumaLOG] 34 unit SQ AC 02/24/19 02/24/19 02/22/19 History Active Meds: Active Medications Acetaminophen (Tylenol) 650 mg PO Q4H PRN PRN Reason: Pain MILD(1-3)/Fever >100.5/TRIMBLE Amlodipine Besylate (Amlodipine) 10 mg PO DAILY [facility] Last Admin: 02/26/19 10:50 Dose: 10 mg Documented by: Apixaban (Eliquis) 5 mg PO BID [facility]; Protocol Last Admin: 02/26/19 12:30 Dose: 5 mg Documented by: Aspirin (Baby Aspirin) 81 mg PO QDAY [facility] Last Admin: 02/26/19 10:51 Dose: 81 mg Documented by: Atorvastatin Calcium (Atorvastatin) 10 mg PO QHS [facility] Last Admin: 02/25/19 22:34 Dose: 10 mg Documented by: Cholecalciferol (Vitamin D3) 400 unit PO BID [facility] Last Admin: 02/26/19 10:49 Dose: 400 unit Documented by: Famotidine (Pepcid) 10 mg PO BID [facility] Last Admin: 02/26/19 10:48 Dose: 10 mg Documented by: Finasteride (Proscar) 5 mg PO QDAY [facility] Last Admin: 02/26/19 10:48 Dose: 5 mg Documented by: Furosemide (Lasix) 80 mg PO QDAY [facility] Last Admin: 02/26/19 10:48 Dose: 80 mg Documented by: Azithromycin 500 mg/ Sodium (Chloride) 250 mls @ 250 mls/hr IV Q24HR [facility]; Protocol Stop: 02/28/19 10:59 Last Admin: 02/26/19 10:58 Dose: 250 mls/hr Documented by: Insulin Glargine (Lantus) 20 units SUB-Q BID [facility] Last Admin: 02/26/19 10:50 Dose: 20 units Documented by: Insulin Human Lispro (Humalog) 15 unit SUB-Q AC [facility] Last Admin: 02/26/19 12:28 Dose: 15 unit Documented by: Insulin Human Regular (Humulin R) 0 units SUB-Q ACHS [facility]; Protocol Last Admin: 02/26/19 12:27 Dose: 3 units Documented by: Methylprednisolone Sodium Succinate (Solu-Medrol) 40 mg IV Q12H [facility] Last Admin: 02/26/19 12:56 Dose: 40 mg Documented by: Metoprolol Tartrate (Metoprolol) 25 mg PO BID [facility] Last Admin: 02/26/19 10:50 Dose: 25 mg Documented by: Ondansetron HCl (Zofran) 4 mg IV Q8H PRN PRN Reason: Nausea And Vomiting Polyethylene Glycol (Miralax 3350) 17 gm PO QDAY PRN PRN Reason: Constipation Pregabalin (Pregabalin) 50 mg PO QHS [facility] Last Admin: 02/25/19 22:34 Dose: 50 mg Documented by: Sodium Chloride (Sodium Chloride Flush Syringe 10 Ml) 10 ml IV BID [facility] Last Admin: 02/26/19 11:10 Dose: 10 ml Documented by: Sodium Chloride (Sodium Chloride Flush Syringe 10 Ml) 10 ml IV PRN PRN PRN Reason: LINE FLUSH Sulfasalazine (Azulfidine) 500 mg PO BID [facility] Last Admin: 02/26/19 11:05 Dose: 500 mg Documented by: Tramadol HCl (Ultram) 50 mg PO QDAY PRN PRN Reason: Pain, Moderate (4-6) Last Admin: 02/26/19 11:14 Dose: 50 mg Documented by: Triamcinolone Acetonide (Kenalog) 1 applic TP BID [facility] Last Admin: 02/26/19 10:52 Dose: 1 applic Documented by: Zolpidem Tartrate (Ambien) 5 mg PO QHS PRN PRN Reason: Sleep Last Admin: 02/25/19 22:30 Dose: 5 mg Documented by: Review of Systems Constitutional: no fever, no chills, no sweats Ears, nose, mouth and throat: no ear pain, no nose pain, no sinus pressure, no sinus pain Cardiovascular: orthopnea, shortness of breath, dyspnea on exertion, no chest pain, no palpitations, no rapid/irregular heart beat, no syncope, no lightheadedness Respiratory: cough, shortness of breath, dyspnea on exertion, wheezing, no congestion, no pain on inspiration Gastrointestinal: no abdominal pain, no nausea, no vomiting, no diarrhea, no constipation, no change in bowel habits Genitourinary Male: no dysuria, no hematuria, no flank pain, no discharge, no urinary frequency, no urinary hesitancy Musculoskeletal: no neck stiffness, no neck pain, no shooting arm pain, no arm numbness/tingling, no low back pain, no shooting leg pain Integumentary: no rash, no pruritis, no redness, no sores, no wounds Neurological: no head injury, no paralysis, no weakness, no parathesias, no numbness, no tingling, no seizures, no syncope Psychiatric: no anxiety Endocrine: no cold intolerance, no heat intolerance Hematologic/Lymphatic: no easy bruising, no easy bleeding Allergic/Immunologic: no urticaria, no wheezing Physical Examination Vital Signs Pulse Ox 95 02/23/19 16:22 General appearance: no acute distress HEENT: Positive: PERRL, Normocephaly, Mucus Membranes Moist Neck: Positive: neck supple, trachea midline Cardiac: Positive: irregularly irregular, S1/S2 Lungs: Positive: Decreased Breath Sounds, Oxygen Neuro: Positive: Grossly Intact Abdomen: Negative: Tender Skin: Negative: Rash Musculoskeletal: No Pain Extremities: Present: edema (trace BLE) Results 02/23/19 16:37 02/26/19 05:53 Comprehensive Metabolic Panel 02/26/19 Range/Units 05:53 Sodium 144 (137-145) mmol/L Potassium 4.4 (3.6-5.0) mmol/L Chloride 103.2 (98-107) mmol/L Carbon Dioxide 27 (22-30) mmol/L BUN 41 H (9-20) mg/dL Creatinine 1.9 H (0.8-1.5) mg/dL Glucose 203 H (75-100) mg/dL Calcium 9.0 (8.4-10.2) mg/dL - Imaging and Cardiology Echo: report reviewed EKG: report reviewed, image reviewed EKG interpretations - Telemetry EKG Rhythm: Atrial Fibrillation - EKG Supraventricular dysrhythmia: atrial fibrillation Assessment and Plan Convert PO lasix to IV lasix BID and f/u BMP in AM. Cont lopressor and Eliquis. No ACEI/ARB at this time in setting of renal insufficiency. Consider ischemic evaluation to r/o ischemic CMP once medically stabilized. [facility] The patient has been seen in conjunction with Dr. Allison who agrees with the assessment and plan of care. 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 (6) Atrial fibrillation Current Visit: Yes Status: Chronic Qualifiers: Atrial fibrillation type: unspecified Qualified Code(s): I48.91 - Unspecified atrial fibrillation (7) HTN (hypertension) Current Visit: Yes Status: Chronic Qualifiers: Hypertension type: essential hypertension Qualified Code(s): I10 - Es sential (primary) hypertension (8) Diabetes Current Visit: Yes Status: Chronic (9) CKD (chronic kidney disease) Current Visit: Yes Status: Chronic (10) Obesity Current Visit: Yes Status: Chronic
--- NOTE | 2019-02-26 14:26 | Progress Note ---
Assessment and Plan Assessment and plan: The patient is a 78 YO male with history significant for Obeisty, DM type 2, HTN, COPD, Atrial Fib and CHF who presented to [facility] ED on 02/23 with c/o worsening shortness of breath of 3 days duration. EMS found him with pulse oximetry of 80% on room air. Pt found to have Acute Hypoxemic Respiratory Jovi lure and placed on NIPPV. / Acute respiratory failure with hypoxia due to acute COPD and CHF exacerbation cont supplemental O2, pulse oximetry, NIPPV as needed, nebulizer therapy, / Acute COPD exacerbation improving cont IV steroid therapy, neb tx, empiric antibiotic therapy. Acute on chronic systolic HF with EF of 25-30% on IV Lasix and BB not on ACEI due to DELMIS cardiology consulted / HTN (hypertension) controlled on meds / DM2 with hyperglycemia BG improved cont ADA diet, insulin regimen, accu check, hypoglycemia protocol / Atrial fibrillation, chronic cont BB for rate control cont oral anticoagulation with eliquis cont tele monitor / DELMIS (acute kidney injury) v acute on CRF ? cardiorenal syndrome vs CKD cont diuresis and monitor cr level nephrology following, appreciate Obesity with BMI of 38.8 lifestyle modification recommended / DVT prophylaxis SCD to BLE while in bed, supportive care. Disp: d//c per clinical course and clearance by cardiology History Interval history: Pt denies worsening sob or chest pain. He reported that he was scheduled for a liver biospy at the [place] tomorrow Hospitalist Physical - Constitutional Vitals: Temp Pulse Resp BP Pulse Ox 97.6 F 107 H 20 135/80 93 02/26/19 13:46 02/26/19 13:46 02/26/19 13:46 02/26/19 13:46 02/26/19 13:46 General appearance: Present: no acute distress, obese - EENT Eyes: Present: PERRL, EOM intact ENT: hearing intact, clear oral mucosa - Neck Neck: Present: supple - Respiratory Respiratory effort: normal Respiratory: bilateral: diminished - Cardiovascular Rhythm: irregularly irregular Heart Sounds: Present: S1 & S2 - Extremities Extremity abnormal: edema (trace edema in BLE) - Abdominal General gastrointestinal: soft, non-tender, normal bowel sounds - Psychiatric Psychiatric: cooperative - Neurologic Neurologic: other (no focal deficit) Results - Labs CBC & Chem 7: 02/23/19 16:37 02/26/19 05:53 Labs: Laboratory Last Values WBC 7.9 K/mm3 (4.5-11.0) 02/23/19 16:37 RBC 4.64 M/mm3 (3.65-5.03) 02/23/19 16:37 Hgb 13.8 gm/dl (11.8-15.2) 02/23/19 16:37 Hct 43.4 % (35.5-45.6) 02/23/19 16:37 MCV 94 fl (84-94) 02/23/19 16:37 MCH 30 pg (28-32) 02/23/19 16:37 MCHC 32 % (32-34) 02/23/19 16:37 RDW 17.3 % (13.2-15.2) H 02/23/19 16:37 Plt Count 242 K/mm3 (140-440) 02/23/19 16:37 Lymph % (Auto) 14.5 % (13.4-35.0) 02/23/19 16:37 [place] % (Auto) 5.1 % (0.0-7.3) 02/23/19 16:37 Eos % (Auto) 3.3 % (0.0-4.3) 02/23/19 16:37 Baso % (Auto) 0.8 % (0.0-1.8) 02/23/19 16:37 Lymph # 1.2 K/mm3 (1.2-5.4) 02/23/19 16:37 [place] # 0.4 K/mm3 (0.0-0.8) 02/23/19 16:37 Eos # 0.3 K/mm3 (0.0-0.4) 02/23/19 16:37 Baso # 0.1 K/mm3 (0.0-0.1) 02/23/19 16:37 Seg Neutrophils % 76.3 % (40.0-70.0) H 02/23/19 16:37 Seg Neutrophils # 6.1 K/mm3 (1.8-7.7) 02/23/19 16:37 PT 18.8 Sec. (12.2-14.9) H 02/23/19 16:37 INR 1.60 (0.87-1.13) H 02/23/19 16:37 APTT 30.8 Sec. (24.2-36.6) 02/23/19 16:37 POC ABG pH 7.373 (7.35-7.45) 02/23/19 21:45 POC ABG pCO2 46.9 (35-45) H 02/23/19 21:45 POC ABG pO2 94 (80-105) 02/23/19 21:45 POC ABG HCO3 27.3 (22-26 mml/L) 02/23/19 21:45 POC ABG Total CO2 29 (23-27mmol/L) 02/23/19 21:45 POC ABG O2 Sat 97 02/23/19 21:45 POC ABG Base Excess 2 ((-2) - (+3)mmol/L) 02/23/19 21:45 FiO2 40 % 02/23/19 21:45 Sodium 144 mmol/L (137-145) 02/26/19 05:53 Potassium 4.4 mmol/L (3.6-5.0) 02/26/19 05:53 Chloride 103.2 mmol/L (98-107) 02/26/19 05:53 Carbon Dioxide 27 mmol/L (22-30) 02/26/19 05:53 Anion Gap 18 mmol/L 02/26/19 05:53 BUN 41 mg/dL (9-20) H 02/26/19 05:53 Creatinine 1.9 mg/dL (0.8-1.5) H 02/26/19 05:53 Estimated GFR 35 ml/min 02/26/19 05:53 BUN/Creatinine Ratio 22 % 02/26/19 05:53 Glucose 203 mg/dL (75-100) H 02/26/19 05:53 POC Glucose 200 (70-105) H 02/26/19 11:35 Hemoglobin A1c 7.5 % (4-6) H 02/24/19 11:54 Lactic Acid 1.80 mmol/L (0.7-2.0) 02/23/19 18:11 Calcium 9.0 mg/dL (8.4-10.2) 02/26/19 05:53 Phosphorus 3.80 mg/dL (2.5-4.5) 02/26/19 05:53 Magnesium 2.50 mg/dL (1.7-2.3) H 02/23/19 16:37 Magnesium 2.50 mg/dL (1.7-2.3) H 02/23/19 16:37 Total Bilirubin 0.70 mg/dL (0.1-1.2) 02/24/19 04:16 AST 18 units/L (5-40) 02/24/19 04:16 ALT 13 units/L (7-56) 02/24/19 04:16 Alkaline Phosphatase 132 units/L (35-129) H 02/24/19 04:16 Total Creatine Kinase 50 units/L (55-170) L 02/23/19 16:37 Troponin T < 0.010 ng/mL (0.00-0.029) 02/23/19 16:37 NT-Pro-B Natriuret Pep 64110 pg/mL (0-900) H 02/23/19 16:37 Total Protein 7.5 g/dL (6.3-8.2) 02/24/19 04:16 Albumin 3.9 g/dL (3.9-5) 02/24/19 04:16 Albumin/Globulin Ratio 1.1 % 02/24/19 04:16 TSH 2.840 mlU/mL (0.270-4.200) 02/23/19 22:00 Free T4 0.81 ng/dL (0.76-1.46) 02/23/19 22:00 PTH Intact 261.7 pg/mL (15-65) H 02/26/19 05:53 Active Medications - Current Medications Current Medications: Generic Name Dose Route Start Last Admin Trade Name Freq PRN Reason Stop Dose Admin Acetaminophen 650 mg 02/23/19 20:33 Tylenol PO Q4H PRN Pain MILD(1-3)/Fever >100.5/TRIMBLE Amlodipine Besylate 10 mg 02/24/19 14:00 02/26/19 10:50 Amlodipine PO 10 mg DAILY DOLLY Administration Apixaban 5 mg 02/24/19 10:00 02/26/19 12:30 Eliquis PO 5 mg BID DOLLY Administration Protocol Aspirin 81 mg 02/24/19 10:00 02/26/19 10:51 Baby Aspirin PO 81 mg QDAY DOLLY Administration Atorvastatin Calcium 10 mg 02/24/19 22:00 02/25/19 22:34 Atorvastatin PO 10 mg QHS DOLLY Administration Cholecalciferol 400 unit 11/17/19 10:00 02/26/19 10:49 Vitamin D3 PO 400 unit BID DOLLY Administration Famotidine 10 mg 02/23/19 22:00 02/26/19 10:48 Pepcid PO 10 mg BID DOLLY Administration Finasteride 5 mg 02/24/19 10:00 02/26/19 10:48 Proscar PO 5 mg QDAY DOLLY Administration Furosemide 40 mg 02/26/19 18:00 Lasix IV 0600,1800 DOLLY Azithromycin 500 mg/ Sodium 250 mls @ 250 mls/hr 02/24/19 10:00 02/26/19 10:58 Chloride IV 02/28/19 10:59 250 mls/hr Q24HR DOLLY Administration Protocol Insulin Glargine 20 units 02/25/19 10:00 02/26/19 10:50 Lantus SUB-Q 20 units BID DOLLY Administration Insulin Human Lispro 15 unit 02/25/19 07:30 02/26/19 12:28 Humalog SUB-Q 15 unit AC DOLLY Administration Insulin Human Regular 0 units 02/23/19 22:00 02/26/19 12:27 Humulin R SUB-Q 3 units ACHS DOLLY Administration Protocol Methylprednisolone Sodium Succinate 40 mg 02/24/19 00:00 02/26/19 12:56 Solu-Medrol IV 40 mg Q12H DOLLY Administration Metoprolol Tartrate 25 mg 02/24/19 02:15 02/26/19 10:50 Metoprolol PO 25 mg BID DOLLY Administration Ondansetron HCl 4 mg 02/23/19 20:33 Zofran IV Q8H PRN Nausea And Vomiting Polyethylene Glycol 17 gm 02/24/19 14:04 Miralax 3350 PO QDAY PRN Constipation Pregabalin 50 mg 02/24/19 22:00 02/25/19 22:34 Pregabalin PO 50 mg QHS DOLLY Administration Sodium Chloride 10 ml 02/23/19 22:00 02/26/19 11:10 Sodium Chloride Flush Syringe 10 Ml IV 10 ml BID DOLLY Administration Sodium Chloride 10 ml 02/23/19 20:33 Sodium Chloride Flush Syringe 10 Ml IV PRN PRN LINE FLUSH Sulfasalazine 500 mg 02/24/19 10:00 02/26/19 11:05 Azulfidine PO 500 mg BID DOLLY Administration Tramadol HCl 50 mg 02/24/19 01:27 02/26/19 11:14 Ultram PO 50 mg QDAY PRN Administration Pain, Moderate (4-6) Triamcinolone Acetonide 1 applic 02/24/19 10:00 02/26/19 10:52 Kenalog TP 1 applic BID DOLLY Administration Zolpidem Tartrate 5 mg 02/24/19 01:31 02/25/19 22:30 Ambien PO 5 mg QHS PRN Administration Sleep
[2019-02-26] MEDS: FUROSEMIDE 40 MG/4 ML INJ IV SCH (17:54)
[2019-02-26] MEDS: PREGABALIN 25 MG CAP PO SCH (21:59)
[2019-02-26] MEDS: ZOLPIDEM 5 MG TAB PO PRN (22:09)
[2019-02-27] MEDS: methylPREDNISolone Sod Succinate 40 MG/1 ML INJ IV SCH (00:04)
[2019-02-27 04:46] LABS: Calcium 8.8 mg/dL (8.4-10.2)
[2019-02-27] MEDS: FUROSEMIDE 40 MG/4 ML INJ IV SCH ×2 (05:59→17:36)
[2019-02-27] MEDS: INSULIN REGULAR, HUMAN 100 UNITS/1 ML SUB-Q SCH ×4 (08:24→22:31)
[2019-02-27] MEDS: INSULIN LISPRO 100 UNIT/ML SUB-Q SCH ×3 (08:27→17:37)
--- NOTE | 2019-02-27 09:30 | Progress Note ---
Assessment and Plan 1. Renal insufficiency: Likely CKD stage 3 / 4. Renal US negative for hydronephrosis. Urine studies ordered. Renal function is stable. Monitor renal function. Avoid nephrotoxic agents. Meds dosage based on GFR. 2. FEN: Volume overload, on Lasix. Monitor lytes. 3. Acute hypoxemic respiratory failure: Combination of due to COPD and CHF exacerbation. 4. CHF exacerbation: Strict I/O, daily weight, diuresis, afterload reduction. 5. Atrial fibrillation: Rate control. On Eliquis. 6. HTN. 7. Diabetes mellitus type 2. Examination: General appearance: well-developed, well-nourished, appears stated age, obese, not in distress HEENT: ATNC, BRETT, hearing intact, vision intact Neck: neck supple, trachea midline Respiratory: Clear to Ascultation Heart: S1S2, no murmurs Gastrointestinal: normoactive bowel sounds, not tender Integumentary: b/l leg scratch cody Neurologic: able to move extremities, no asterixis, alert and oriented x3 Ext: no edema Subjective Date of service: 02/27/19 Interval history: Patient was seen and examined at the bedside. Doing ok. Objective - Vital Signs Vital signs: Vital Signs - 12hr 02/26/19 02/26/19 02/26/19 22:00 22:02 23:00 Temperature Pulse Rate 80 80 Pulse Rate [ 80 Left Radial] Respiratory 20 24 Rate Blood Pressure 140/101 O2 Sat by Pulse 98 Oximetry 02/27/19 02/27/19 02/27/19 00:07 02:15 07:04 Temperature 98.6 F 98.0 F Pulse Rate 79 74 98 H Pulse Rate [ Left Radial] Respiratory 21 20 Rate Blood Pressure 137/89 152/101 O2 Sat by Pulse 97 97 Oximetry 02/27/19 07:08 Temperature Pulse Rate Pulse Rate [ Left Radial] Respiratory Rate Blood Pressure 153/97 O2 Sat by Pulse Oximetry - Lab 02/23/19 16:37 02/27/19 04:08 Most recent lab results Calcium 8.8 mg/dL (8.4-10.2) 02/27/19 04:08 Phosphorus 3.80 mg/dL (2.5-4.5) 02/26/19 05:53 Magnesium 2.50 mg/dL (1.7-2.3) H 02/23/19 16:37 Magnesium 2.50 mg/dL (1.7-2.3) H 02/23/19 16:37 Medications & Allergies - Medications Allergies/Adverse Reactions: Allergies gabapentin [From Gabarone] Allergy (Verified 02/23/19 16:33) Unknown Home Medications: Home Medications Medication Instructions Recorded Confirmed Last Taken Type Aspirin BABY CHEW TAB 81 mg PO QDAY 02/23/19 02/24/19 Unknown History AtorvaSTATin 10 mg PO QHS 02/23/19 02/24/19 Unknown History Eliquis 5 mg PO BID 02/23/19 02/24/19 Unknown History Finasteride 5 mg PO QDAY 02/23/19 02/24/19 Unknown History Furosemide 80 mg PO QDAY 02/23/19 02/24/19 Unknown History Mapap 650 mg PO Q4H PRN 02/23/19 02/24/19 Unknown History Metoprolol Tartrate 25 mg PO BID 02/23/19 02/24/19 Unknown History Polyethylene Glycol 3350 17 gram PO QDAY PRN 02/23/19 02/24/19 Unknown History Pregabalin 50 mg PO QHS 02/23/19 02/24/19 Unknown History Ranitidine HCl 150 mg PO QDAY 02/23/19 02/24/19 Unknown History Robafen Dm Cough Syrup 10 ml PO Q4H PRN 02/23/19 02/24/19 Unknown History Tramadol HCl 50 mg PO QDAY 02/23/19 02/24/19 Unknown History Triamcinolone Aceton 0.1% (Nf) 1 applic TP BID 02/23/19 02/24/19 Unknown History Vitamin D3 400 UNIT TAB 400 units PO BID 02/23/19 02/24/19 Unknown History Zolpidem Tartrate ER 5 mg PO QHS 02/23/19 02/24/19 Unknown History amLODIPine 10 mg PO QDAY 02/23/19 02/24/19 Unknown History sulfaSALAzine 500 mg PO BID 02/23/19 02/24/19 Unknown History Insulin Glargine,Hum.rec.anlog 40 units SUB-Q BID 02/24/19 02/24/19 02/22/19 History Lispro Insulin [HumaLOG] 34 unit SQ AC 02/24/19 02/24/19 02/22/19 History Active Medications: Generic Name Dose Route Start Last Admin Trade Name Angelica PRN Reason Stop Dose Admin Acetaminophen 650 mg 02/23/19 20:33 Tylenol PO Q4H PRN Pain MILD(1-3)/Fever >100.5/TRIMBLE Amlodipine Besylate 10 mg 02/24/19 14:00 02/26/19 10:50 Amlodipine PO 10 mg DAILY DOLLY Administration Apixaban 5 mg 02/24/19 10:00 02/26/19 22:02 Eliquis PO 5 mg BID DOLLY Administration Protocol Aspirin 81 mg 02/24/19 10:00 02/26/19 10:51 Baby Aspirin PO 81 mg QDAY DOLLY Administration Atorvastatin Calcium 10 mg 02/24/19 22:00 02/26/19 22:02 Atorvastatin PO 10 mg QHS DOLLY Administration Cholecalciferol 400 unit 02/24/19 10:00 02/26/19 22:02 Vitamin D3 PO 400 unit BID DOLLY Administration Famotidine 10 mg 02/23/19 22:00 02/26/19 22:01 Pepcid PO 10 mg BID DOLLY Administration Finasteride 5 mg 02/24/19 10:00 02/26/19 10:48 Proscar PO 5 mg QDAY DOLLY Administration Furosemide 40 mg 02/26/19 18:00 02/27/19 05:59 Lasix IV 40 mg 0600,1800 DOLLY Administration Azithromycin 500 mg/ Sodium 250 mls @ 250 mls/hr 02/24/19 10:00 02/26/19 10:58 Chloride IV 02/28/19 10:59 250 mls/hr Q24HR DOLLY Administration Protocol Insulin Glargine 20 units 02/25/19 10:00 02/26/19 23:05 Lantus SUB-Q 20 units BID DOLLY Administration Insulin Human Lispro 15 unit 02/25/19 07:30 02/27/19 08:27 Humalog SUB-Q 15 unit AC DOLLY Administration Insulin Human Regular 0 units 02/23/19 22:00 02/27/19 08:24 Humulin R SUB-Q 3 units ACHS DOLLY Administration Protocol Methylprednisolone Sodium Succinate 40 mg 02/24/19 00:00 02/27/19 00:04 Solu-Medrol IV 40 mg Q12H DOLLY Administration Metoprolol Tartrate 25 mg 02/24/19 02:15 02/26/19 22:02 Metoprolol PO 25 mg BID DOLLY Administration Ondansetron HCl 4 mg 02/23/19 20:33 Zofran IV Q8H PRN Nausea And Vomiting Polyethylene Glycol 17 gm 02/24/19 14:04 Miralax 3350 PO QDAY PRN Constipation Pregabalin 50 mg 02/24/19 22:00 02/26/19 21:59 Pregabalin PO 50 mg QHS DOLLY Administration Sodium Chloride 10 ml 02/23/19 22:00 02/26/19 22:05 Sodium Chloride Flush Syringe 10 Ml IV 10 ml BID DOLLY Administration Sodium Chloride 10 ml 02/23/19 20:33 Sodium Chloride Flush Syringe 10 Ml IV PRN PRN LINE FLUSH Sulfasalazine 500 mg 02/24/19 10:00 02/26/19 22:01 Azulfidine PO 500 mg BID DOLLY Administration Tramadol HCl 50 mg 02/24/19 01:27 02/26/19 22:10 Ultram PO 50 mg QDAY PRN Administration Pain, Moderate (4-6) Triamcinolone Acetonide 1 applic 02/24/19 10:00 02/26/19 22:05 Kenalog TP 1 applic BID DOLLY Administration Zolpidem Tartrate 5 mg 02/24/19 01:31 02/26/19 22:09 Ambien PO 5 mg QHS PRN Administration Sleep
[2019-02-27] MEDS: CHOLECALCIFEROL (VIT D3) 400 UNIT TAB PO SCH ×2 (10:03→22:28)
[2019-02-27] MEDS: APIXABAN 5 MG TAB PO SCH ×2 (10:04→22:28)
[2019-02-27] MEDS: sulfaSALAzine 500 MG TAB PO SCH ×2 (10:04→22:27)
[2019-02-27] MEDS: ASPIRIN 81 MG TAB CHEW PO SCH (10:04)
[2019-02-27] MEDS: FINASTERIDE 5 MG TAB PO SCH (10:04)
[2019-02-27] MEDS: METOPROLOL TARTRATE 25 MG TAB PO SCH ×3 (10:04→17:41)
[2019-02-27] MEDS: FAMOTIDINE 10 MG TAB PO SCH ×2 (10:04→22:28)
[2019-02-27] MEDS: AZITHROMYCIN 500 MG in SODIUM CHLORIDE 0.9% 250ML 250 ML IV SCH (10:04)
[2019-02-27] MEDS: INSULIN GLARGINE 100 UNITS/ML SUB-Q SCH ×2 (10:04→22:31)
[2019-02-27] MEDS: TRIAMCINOLONE 0.1% CREAM 15 GM TP SCH ×2 (10:05→22:33)
[2019-02-27] MEDS: amLODIPine 10 MG TAB PO SCH (10:07)
[2019-02-27] MEDS: traMADol 50 MG TAB PO PRN ×2 (10:31→22:27)
--- NOTE | 2019-02-27 11:13 | Progress Note ---
Assessment and Plan Assessment and plan: The patient is a 78 YO male with history significant for Obeisty, DM type 2, HTN, COPD, Atrial Fib and CHF who presented to [facility] ED on 02/23 with c/o worsening shortness of breath of 3 days duration. EMS found him with pulse oximetry of 80% on room air. Pt found to have Acute Hypoxemic Respiratory Jovi lure and placed on NIPPV. / Acute respiratory failure with hypoxia due to acute COPD and CHF exacerbation, improving cont supplemental O2, pulse oximetry, NIPPV at night, nebulizer therapy, / Acute COPD exacerbation improving cont neb tx and empiric antibiotic therapy will change steroid to oral Acute on chronic systolic HF with EF of 25-30% improving cont IV Lasix and BB not on ACEI due to DELMIS cardiology consulted / HTN (hypertension) BP fairly controlled cont amlodipine, will increase dose of metoprolol / DM2 with hyperglycemia BG currently controlled cont ADA diet, insulin regimen, accu check, hypoglycemia protocol / Atrial fibrillation, chronic HR fairly controlled, will increase dose of metoprolol cont oral anticoagulation with eliquis cont tele monitor / DELMIS (acute kidney injury) v acute on CRF ? cardiorenal syndrome vs CKD cr level stable cont diuresis and monitor cr level nephrology following, appreciate Obesity with BMI of 38.8 lifestyle modification recommended / DVT prophylaxis SCD to BLE while in bed and eliquis Disp: d/c per clinical course and clearance by cardiology History Interval history: Pt has no new complaints. He reports feeling better today. Hospitalist Physical - Constitutional Vitals: Temp Pulse Resp BP Pulse Ox 98.0 F 81 20 145/106 97 02/27/19 07:04 02/27/19 10:04 02/27/19 07:04 02/27/19 10:04 02/27/19 07:04 General appearance: Present: no acute distress, obese - EENT Eyes: Present: PERRL, EOM intact ENT: hearing intact, clear oral mucosa - Neck Neck: Present: supple - Respiratory Respiratory effort: normal Respiratory: bilateral: diminished - Cardiovascular Rhythm: irregularly irregular Heart Sounds: Present: S1 & S2 - Extremities Extremities: No edema - Abdominal General gastrointestinal: soft, non-tender, normal bowel sounds - Psychiatric Psychiatric: cooperative - Neurologic Neurologic: other (alert and oriented x3) Results - Labs CBC & Chem 7: 02/23/19 16:37 02/27/19 04:08 Labs: Laboratory Last Values WBC 7.9 K/mm3 (4.5-11.0) 02/23/19 16:37 RBC 4.64 M/mm3 (3.65-5.03) 02/23/19 16:37 Hgb 13.8 gm/dl (11.8-15.2) 02/23/19 16:37 Hct 43.4 % (35.5-45.6) 02/23/19 16:37 MCV 94 fl (84-94) 02/23/19 16:37 MCH 30 pg (28-32) 02/23/19 16:37 MCHC 32 % (32-34) 02/23/19 16:37 RDW 17.3 % (13.2-15.2) H 02/23/19 16:37 Plt Count 242 K/mm3 (140-440) 02/23/19 16:37 Lymph % (Auto) 14.5 % (13.4-35.0) 02/23/19 16:37 [place] % (Auto) 5.1 % (0.0-7.3) 02/23/19 16:37 Eos % (Auto) 3.3 % (0.0-4.3) 02/23/19 16:37 Baso % (Auto) 0.8 % (0.0-1.8) 02/23/19 16:37 Lymph # 1.2 K/mm3 (1.2-5.4) 02/23/19 16:37 [place] # 0.4 K/mm3 (0.0-0.8) 02/23/19 16:37 Eos # 0.3 K/mm3 (0.0-0.4) 02/23/19 16:37 Baso # 0.1 K/mm3 (0.0-0.1) 02/23/19 16:37 Seg Neutrophils % 76.3 % (40.0-70.0) H 02/23/19 16:37 Seg Neutrophils # 6.1 K/mm3 (1.8-7.7) 02/23/19 16:37 PT 18.8 Sec. (12.2-14.9) H 02/23/19 16:37 INR 1.60 (0.87-1.13) H 02/23/19 16:37 APTT 30.8 Sec. (24.2-36.6) 02/23/19 16:37 POC ABG pH 7.373 (7.35-7.45) 02/23/19 21:45 POC ABG pCO2 46.9 (35-45) H 02/23/19 21:45 POC ABG pO2 94 (80-105) 02/23/19 21:45 POC ABG HCO3 27.3 (22-26 mml/L) 02/23/19 21:45 POC ABG Total CO2 29 (23-27mmol/L) 02/23/19 21:45 POC ABG O2 Sat 97 02/23/19 21:45 POC ABG Base Excess 2 ((-2) - (+3)mmol/L) 02/23/19 21:45 FiO2 40 % 02/23/19 21:45 Sodium 144 mmol/L (137-145) 02/27/19 04:08 Potassium 4.0 mmol/L (3.6-5.0) 02/27/19 04:08 Chloride 102.0 mmol/L (98-107) 02/27/19 04:08 Carbon Dioxide 28 mmol/L (22-30) 02/27/19 04:08 Anion Gap 18 mmol/L 02/27/19 04:08 BUN 40 mg/dL (9-20) H 02/27/19 04:08 Creatinine 1.9 mg/dL (0.8-1.5) H 02/27/19 04:08 Estimated GFR 35 ml/min 02/27/19 04:08 BUN/Creatinine Ratio 21 % 02/27/19 04:08 Glucose 216 mg/dL (75-100) H 02/27/19 04:08 POC Glucose 217 (70-105) H 02/27/19 07:13 Hemoglobin A1c 7.5 % (4-6) H 02/24/19 11:54 Lactic Acid 1.80 mmol/L (0.7-2.0) 02/23/19 18:11 Calcium 8.8 mg/dL (8.4-10.2) 02/27/19 04:08 Phosphorus 3.80 mg/dL (2.5-4.5) 02/26/19 05:53 Magnesium 2.50 mg/dL (1.7-2.3) H 02/23/19 16:37 Magnesium 2.50 mg/dL (1.7-2.3) H 02/23/19 16:37 Total Bilirubin 0.70 mg/dL (0.1-1.2) 02/24/19 04:16 AST 18 units/L (5-40) 02/24/19 04:16 ALT 13 units/L (7-56) 02/24/19 04:16 Alkaline Phosphatase 132 units/L (35-129) H 02/24/19 04:16 Total Creatine Kinase 50 units/L (55-170) L 02/23/19 16:37 Troponin T < 0.010 ng/mL (0.00-0.029) 02/23/19 16:37 NT-Pro-B Natriuret Pep 79187 pg/mL (0-900) H 02/23/19 16:37 Total Protein 7.5 g/dL (6.3-8.2) 02/24/19 04:16 Albumin 3.9 g/dL (3.9-5) 02/24/19 04:16 Albumin/Globulin Ratio 1.1 % 02/24/19 04:16 TSH 2.840 mlU/mL (0.270-4.200) 02/23/19 22:00 Free T4 0.81 ng/dL (0.76-1.46) 02/23/19 22:00 PTH Intact 261.7 pg/mL (15-65) H 02/26/19 05:53 Active Medications - Current Medications Current Medications: Generic Name Dose Route Start Last Admin Trade Name Freq PRN Reason Stop Dose Admin Acetaminophen 650 mg 02/23/19 20:33 Tylenol PO Q4H PRN Pain MILD(1-3)/Fever >100.5/TRIMBLE Amlodipine Besylate 10 mg 02/24/19 14:00 02/27/19 10:07 Amlodipine PO 10 mg DAILY DOLLY Administration Apixaban 5 mg 02/24/19 10:00 02/27/19 10:04 Eliquis PO 5 mg BID DOLLY Administration Protocol Aspirin 81 mg 02/24/19 10:00 02/27/19 10:04 Baby Aspirin PO 81 mg QDAY DOLLY Administration Atorvastatin Calcium 10 mg 02/24/19 22:00 02/26/19 22:02 Atorvastatin PO 10 mg QHS DOLLY Administration Cholecalciferol 400 unit 02/24/19 10:00 02/27/19 10:03 Vitamin D3 PO 400 unit BID DOLLY Administration Famotidine 10 mg 02/23/19 22:00 02/27/19 10:04 Pepcid PO 10 mg BID DOLLY Administration Finasteride 5 mg 02/24/19 10:00 02/27/19 10:04 Proscar PO 5 mg QDAY DOLLY Administration Furosemide 40 mg 02/26/19 18:00 02/27/19 05:59 Lasix IV 40 mg 0600,1800 DOLLY Administration Azithromycin 500 mg/ Sodium 250 mls @ 250 mls/hr 02/24/19 10:00 02/27/19 10:04 Chloride IV 02/28/19 10:59 250 mls/hr Q24HR DOLLY Administration Protocol Insulin Glargine 20 units 02/25/19 10:00 02/27/19 10:04 Lantus SUB-Q 20 units BID DOLLY Administration Insulin Human Lispro 15 unit 02/25/19 07:30 02/27/19 08:27 Humalog SUB-Q 15 unit AC DOLLY Administration Insulin Human Regular 0 units 02/23/19 22:00 02/27/19 08:24 Humulin R SUB-Q 3 units ACHS DOLLY Administration Protocol Methylprednisolone Sodium Succinate 40 mg 02/24/19 00:00 02/27/19 00:04 Solu-Medrol IV 40 mg Q12H DOLLY Administration Metoprolol Tartrate 25 mg 02/24/19 02:15 02/27/19 10:04 Metoprolol PO 25 mg BID DOLLY Administration Ondansetron HCl 4 mg 02/23/19 20:33 Zofran IV Q8H PRN Nausea And Vomiting Polyethylene Glycol 17 gm 02/24/19 14:04 Miralax 3350 PO QDAY PRN Constipation Pregabalin 50 mg 02/24/19 22:00 02/26/19 21:59 Pregabalin PO 50 mg QHS DOLLY Administration Sodium Chloride 10 ml 02/23/19 22:00 02/27/19 10:31 Sodium Chloride Flush Syringe 10 Ml IV 10 ml BID DOLLY Administration Sodium Chloride 10 ml 02/23/19 20:33 Sodium Chloride Flush Syringe 10 Ml IV PRN PRN LINE FLUSH Sulfasalazine 500 mg 02/24/19 10:00 02/27/19 10:04 Azulfidine PO 500 mg BID DOLLY Administration Tramadol HCl 50 mg 02/24/19 01:27 02/27/19 10:31 Ultram PO 50 mg QDAY PRN Administration Pain, Moderate (4-6) Triamcinolone Acetonide 1 applic 02/24/19 10:00 02/27/19 10:05 Kenalog TP 1 applic BID DOLLY Administration Zolpidem Tartrate 5 mg 02/24/19 01:31 02/26/19 22:09 Ambien PO 5 mg QHS PRN Administration Sleep
[2019-02-27] MEDS ORDERED: METOPROLOL TARTRATE 25 MG TAB PO SCH (11:17)
--- NOTE | 2019-02-27 11:26 | Progress Note ---
Assessment and Plan Optimize HR - increase lopressor dosage and d/c norvasc to allow for increase of lopressor. Cont Eliquis. No ACEI/ARB at this time in setting of renal insufficiency. Cont diuresis. Consider ischemic evaluation to r/o ischemic CMP once medically stabilized. [facility] The patient has been seen in conjunction with Dr. Allison who agrees with the assessment and plan of care. 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 (6) Atrial fibrillation Current Visit: Yes Status: Chronic Qualifiers: Atrial fibrillation type: unspecified Qualified Code(s): I48.91 - Unspecified atrial fibrillation (7) HTN (hypertension) Current Visit: Yes Status: Chronic Qualifiers: Hypertension type: essential hypertension Qualified Code(s): I10 - Essential (primary) hypertension (8) Diabetes Current Visit: Yes Status: Chronic (9) CKD (chronic kidney disease) Current Visit: Yes Status: Chronic (10) Obesity Current Visit: Yes Status: Chronic Subjective Date of service: 02/27/19 Principal diagnosis: HF; AFib; COPD Interval history: Pt resting in bed, SOB improving. tele reviewed - in AFib with RVR, HR 130s. Objective Last Vital Signs Temp 98.0 F 02/27/19 07:04 Pulse 81 02/27/19 10:04 Resp 20 02/27/19 07:04 BP 145/106 02/27/19 10:04 Pulse Ox 97 02/27/19 07:04 - Physical Examination General: No Apparent Distress HEENT: Positive: PERRL, Normocephaly, Mucus Membranes Moist Neck: Positive: neck supple, trachea midline Cardiac: Positive: irregularly irregular, S1/S2, Tachycardia Lungs: Positive: Decreased Breath Sounds Neuro: Positive: Grossly Intact Abdomen: Negative: Tender Skin: Negative: Rash Musculoskeletal: No Pain Extremities: Present: edema (trace BLE) - Labs and Meds Comprehensive Metabolic Panel 02/27/19 Range/Units 04:08 Sodium 144 (137-145) mmol/L Potassium 4.0 (3.6-5.0) mmol/L Chloride 102.0 (98-107) mmol/L Carbon Dioxide 28 (22-30) mmol/L BUN 40 H (9-20) mg/dL Creatinine 1.9 H (0.8-1.5) mg/dL Glucose 216 H (75-100) mg/dL Calcium 8.8 (8.4-10.2) mg/dL - Imaging and Cardiology EKG: report reviewed, image reviewed Echo: report reviewed - Telemetry EKG Rhythm: Atrial Fibrillation
[2019-02-27] MEDS: HYPROMELLOSE 0.5% OPHTH SOLN 15 ML OU PRN (19:38)
[2019-02-27 20:03] LABS: Bilirubin,Urine NEG (Negative); Blood,Urine MOD (Negative); Color,Urine Yellow (Yellow); Urobilinogen,Urine < 2.0 mg/dL (<2.0)
[2019-02-27 20:16] LABS: Creatinine,Urine 30.8 mg/dL (0.1-20.0)
[2019-02-27] MEDS: PREGABALIN 25 MG CAP PO SCH (22:27)
[2019-02-27] MEDS: ZOLPIDEM 5 MG TAB PO PRN (22:27)
[2019-02-28] MEDS: METOPROLOL TARTRATE 25 MG TAB PO SCH ×4 (00:35→18:11)
[2019-02-28 05:25] LABS: Calcium 8.6 mg/dL (8.4-10.2)
[2019-02-28] MEDS: FUROSEMIDE 40 MG/4 ML INJ IV SCH ×2 (05:50→18:11)
[2019-02-28] MEDS: INSULIN REGULAR, HUMAN 100 UNITS/1 ML SUB-Q SCH ×4 (08:32→22:12)
[2019-02-28] MEDS: INSULIN LISPRO 100 UNIT/ML SUB-Q SCH ×3 (08:34→18:00)
[2019-02-28] MEDS: POTASSIUM CHLORIDE ER 20 MEQ TAB PO SCH ×2 (08:45→18:44)
[2019-02-28] MEDS: FINASTERIDE 5 MG TAB PO SCH (10:17)
[2019-02-28] MEDS: FAMOTIDINE 10 MG TAB PO SCH ×2 (10:17→22:10)
[2019-02-28] MEDS: APIXABAN 5 MG TAB PO SCH ×2 (10:17→22:11)
[2019-02-28] MEDS: sulfaSALAzine 500 MG TAB PO SCH ×2 (10:17→22:11)
[2019-02-28] MEDS: ASPIRIN 81 MG TAB CHEW PO SCH (10:17)
[2019-02-28] MEDS: predniSONE 20 MG TAB PO SCH (10:17)
[2019-02-28] MEDS: INSULIN GLARGINE 100 UNITS/ML SUB-Q SCH ×2 (10:18→22:11)
[2019-02-28] MEDS: CHOLECALCIFEROL (VIT D3) 400 UNIT TAB PO SCH ×2 (10:18→22:10)
[2019-02-28] MEDS: AZITHROMYCIN 500 MG in SODIUM CHLORIDE 0.9% 250ML 250 ML IV SCH (10:21)
[2019-02-28] MEDS: HYPROMELLOSE 0.5% OPHTH SOLN 15 ML OU PRN ×2 (10:25→22:13)
[2019-02-28] MEDS: TRIAMCINOLONE 0.1% CREAM 15 GM TP SCH ×2 (10:25→22:13)
--- NOTE | 2019-02-28 10:40 | Progress Note ---
Assessment and Plan Cont present cardiac management. No ACEI/ARB at this time in setting of renal insufficiency. Plan for lexiscan MPI stress test in AM to r/o ischemic CMP. NPO after MN. The patient has been seen in conjunction with Dr. Allison who agrees with the assessment and plan of care. 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 (6) Atrial fibrillation Current Visit: Yes Status: Chronic Qualifiers: Atrial fibrillation type: unspecified Qualified Code(s): I48.91 - Unspecified atrial fibrillation (7) HTN (hypertension) Current Visit: Yes Status: Chronic Qualifiers: Hypertension type: essential hypertension Qualified Code(s): I10 - Essential (primary) hypertension (8) Diabetes Current Visit: Yes Status: Chronic (9) CKD (chronic kidney disease) Current Visit: Yes Status: Chronic (10) Obesity Current Visit: Yes Status: Chronic Subjective Date of service: 02/28/19 Principal diagnosis: HF; AFib; COPD Interval history: Pt resting in bed, SOB improving. tele reviewed - in AFib with CVR HR 70s. Objective Last Vital Signs Temp 96.8 F L 02/28/19 08:04 Pulse 69 02/28/19 08:04 Resp 22 02/28/19 08:04 BP 130/90 02/28/19 08:04 Pulse Ox 98 02/28/19 09:59 - Physical Examination General: No Apparent Distress HEENT: Positive: PERRL, Normocephaly, Mucus Membranes Moist Neck: Positive: neck supple, trachea midline Cardiac: Positive: irregularly irregular, S1/S2 Lungs: Positive: Decreased Breath Sounds Neuro: Positive: Grossly Intact Abdomen: Negative: Tender Skin: Negative: Rash Musculoskeletal: No Pain Extremities: Present: edema (trace BLE) - Labs and Meds Comprehensive Metabolic Panel 02/28/19 Range/Units 04:47 Sodium 146 H (137-145) mmol/L Potassium 3.3 L (3.6-5.0) mmol/L Chloride 102.8 (98-107) mmol/L Carbon Dioxide 28 (22-30) mmol/L BUN 45 H (9-20) mg/dL Creatinine 1.8 H (0.8-1.5) mg/dL Glucose 103 H (75-100) mg/dL Calcium 8.6 (8.4-10.2) mg/dL - Imaging and Cardiology EKG: report reviewed, image reviewed Echo: report reviewed
[2019-02-28] MEDS: traMADol 50 MG TAB PO PRN ×2 (11:26→22:08)
[2019-02-28] MEDS ORDERED: NAPHAZOLINE/PHENIRAMINE 0.025/0.3% OPHTH SOLN 15 ML OU PRN (12:12)
--- NOTE | 2019-02-28 12:14 | Progress Note ---
Assessment and Plan Assessment and plan: The patient is a 78 YO male with history significant for Obeisty, DM type 2, HTN, COPD, Atrial Fib and CHF who presented to [facility] ED on 02/23 with c/o worsening shortness of breath of 3 days duration. EMS found him with pulse oximetry of 80% on room air. Pt found to have Acute Hypoxemic Respiratory Jovi lure and placed on NIPPV. / Acute respiratory failure with hypoxia due to acute COPD and CHF exacerbation, improving cont supplemental O2, pulse oximetry, NIPPV at night, nebulizer therapy, / Acute COPD exacerbation improving cont neb tx, oral steroid and empiric antibiotic therapy Acute on chronic systolic HF with EF of 25-30% improving cont IV Lasix and BB not on ACEI due to DELMIS cardiology following: recommended stress test for further eval / HTN (hypertension) BP controlled cont amlodipine and metoprolol / DM2 with hyperglycemia BG stable cont ADA diet, insulin regimen, accu check, hypoglycemia protocol / Atrial fibrillation, chronic HR controlled on metoprolol cont oral anticoagulation with eliquis cont tele monitor / DELMIS (acute kidney injury) v acute on CRF ? cardiorenal syndrome cr level stable cont diuresis and monitor cr level nephrology following, appreciate Hypokalemia -on repletion, will monitor level -will check mg level Obesity with BMI of 38.8 lifestyle modification recommended / DVT prophylaxis SCD to BLE while in bed and eliquis Disp: pending stress test in am. d/c per clinical course and clearance by cardiology History Interval history: Pt reports LT eye itching without redness Hospitalist Physical - Constitutional Vitals: Temp Pulse Resp BP Pulse Ox 96.8 F L 69 22 130/90 98 02/28/19 08:04 02/28/19 08:04 02/28/19 08:04 02/28/19 08:04 02/28/19 09:59 General appearance: Present: no acute distress, obese - EENT Eyes: Present: PERRL, EOM intact ENT: hearing intact, clear oral mucosa - Neck Neck: Present: supple - Respiratory Respiratory effort: normal Respiratory: bilateral: CTA - Cardiovascular Rhythm: irregularly irregular Heart Sounds: Present: S1 & S2 - Extremities Extremities: No edema - Abdominal General gastrointestinal: soft, non-tender, normal bowel sounds - Integumentary Integumentary: Present: warm, dry - Psychiatric Psychiatric: appropriate mood/affect - Neurologic Neurologic: other (alert and oriented x3) Results - Labs CBC & Chem 7: 02/23/19 16:37 02/28/19 04:47 Labs: Laboratory Last Values WBC 7.9 K/mm3 (4.5-11.0) 02/23/19 16:37 RBC 4.64 M/mm3 (3.65-5.03) 02/23/19 16:37 Hgb 13.8 gm/dl (11.8-15.2) 02/23/19 16:37 Hct 43.4 % (35.5-45.6) 02/23/19 16:37 MCV 94 fl (84-94) 02/23/19 16:37 MCH 30 pg (28-32) 02/23/19 16:37 MCHC 32 % (32-34) 02/23/19 16:37 RDW 17.3 % (13.2-15.2) H 02/23/19 16:37 Plt Count 242 K/mm3 (140-440) 02/23/19 16:37 Lymph % (Auto) 14.5 % (13.4-35.0) 02/23/19 16:37 Sac % (Auto) 5.1 % (0.0-7.3) 02/23/19 16:37 Eos % (Auto) 3.3 % (0.0-4.3) 02/23/19 16:37 Baso % (Auto) 0.8 % (0.0-1.8) 02/23/19 16:37 Lymph # 1.2 K/mm3 (1.2-5.4) 02/23/19 16:37 Sac # 0.4 K/mm3 (0.0-0.8) 02/23/19 16:37 Eos # 0.3 K/mm3 (0.0-0.4) 02/23/19 16:37 Baso # 0.1 K/mm3 (0.0-0.1) 02/23/19 16:37 Seg Neutrophils % 76.3 % (40.0-70.0) H 02/23/19 16:37 Seg Neutrophils # 6.1 K/mm3 (1.8-7.7) 02/23/19 16:37 PT 18.8 Sec. (12.2-14.9) H 02/23/19 16:37 INR 1.60 (0.87-1.13) H 02/23/19 16:37 APTT 30.8 Sec. (24.2-36.6) 02/23/19 16:37 POC ABG pH 7.373 (7.35-7.45) 02/23/19 21:45 POC ABG pCO2 46.9 (35-45) H 02/23/19 21:45 POC ABG pO2 94 (80-105) 02/23/19 21:45 POC ABG HCO3 27.3 (22-26 mml/L) 02/23/19 21:45 POC ABG Total CO2 29 (23-27mmol/L) 02/23/19 21:45 POC ABG O2 Sat 97 02/23/19 21:45 POC ABG Base Excess 2 ((-2) - (+3)mmol/L) 02/23/19 21:45 FiO2 40 % 02/23/19 21:45 Sodium 146 mmol/L (137-145) H 02/28/19 04:47 Potassium 3.3 mmol/L (3.6-5.0) L 02/28/19 04:47 Chloride 102.8 mmol/L (98-107) 02/28/19 04:47 Carbon Dioxide 28 mmol/L (22-30) 02/28/19 04:47 Anion Gap 19 mmol/L 02/28/19 04:47 BUN 45 mg/dL (9-20) H 02/28/19 04:47 Creatinine 1.8 mg/dL (0.8-1.5) H 02/28/19 04:47 Estimated GFR 37 ml/min 02/28/19 04:47 BUN/Creatinine Ratio 25 % 02/28/19 04:47 Glucose 103 mg/dL (75-100) H 02/28/19 04:47 POC Glucose 271 (70-105) H 02/28/19 11:42 Hemoglobin A1c 7.5 % (4-6) H 02/24/19 11:54 Lactic Acid 1.80 mmol/L (0.7-2.0) 02/23/19 18:11 Calcium 8.6 mg/dL (8.4-10.2) 02/28/19 04:47 Phosphorus 3.80 mg/dL (2.5-4.5) 02/26/19 05:53 Magnesium 2.50 mg/dL (1.7-2.3) H 02/23/19 16:37 Magnesium 2.50 mg/dL (1.7-2.3) H 02/23/19 16:37 Total Bilirubin 0.70 mg/dL (0.1-1.2) 02/24/19 04:16 AST 18 units/L (5-40) 02/24/19 04:16 ALT 13 units/L (7-56) 02/24/19 04:16 Alkaline Phosphatase 132 units/L (35-129) H 02/24/19 04:16 Total Creatine Kinase 50 units/L (55-170) L 02/23/19 16:37 Troponin T < 0.010 ng/mL (0.00-0.029) 02/23/19 16:37 NT-Pro-B Natriuret Pep 23179 pg/mL (0-900) H 02/23/19 16:37 Total Protein 7.5 g/dL (6.3-8.2) 02/24/19 04:16 Albumin 3.9 g/dL (3.9-5) 02/24/19 04:16 Albumin/Globulin Ratio 1.1 % 02/24/19 04:16 TSH 2.840 mlU/mL (0.270-4.200) 02/23/19 22:00 Free T4 0.81 ng/dL (0.76-1.46) 02/23/19 22:00 PTH Intact 261.7 pg/mL (15-65) H 02/26/19 05:53 Urine Color Yellow (Yellow) 02/25/19 11:30 Urine Turbidity Clear (Clear) 02/25/19 11:30 Urine pH 6.0 (5.0-7.0) 02/25/19 11:30 Ur Specific Sod 1.009 (1.003-1.030) 02/25/19 11:30 Urine Protein 30 mg/dl mg/dL (Negative) 02/25/19 11:30 Urine Glucose (UA) Neg mg/dL (Negative) 02/25/19 11:30 Urine Ketones Neg mg/dL (Negative) 02/25/19 11:30 Urine Blood Mod (Negative) 02/25/19 11:30 Urine Nitrite Neg (Negative) 02/25/19 11:30 Urine Bilirubin Neg (Negative) 02/25/19 11:30 Urine Urobilinogen < 2.0 mg/dL (<2.0) 02/25/19 11:30 Ur Leukocyte Esterase Sm (Negative) 02/25/19 11:30 Urine WBC (Auto) 8.0 /HPF (0.0-6.0) H 02/25/19 11:30 Urine RBC (Auto) 10.0 /HPF (0.0-6.0) 02/25/19 11:30 Urine Creatinine 30.8 mg/dL (0.1-20.0) H 02/27/19 19:45 Urine Sodium 100 mmol/L 02/27/19 19:45 Active Medications - Current Medications Current Medications: Generic Name Dose Route Start Last Admin Trade Name Freq PRN Reason Stop Dose Admin Acetaminophen 650 mg 02/23/19 20:33 Tylenol PO Q4H PRN Pain MILD(1-3)/Fever >100.5/TRIMBLE Apixaban 5 mg 02/24/19 10:00 02/28/19 10:17 Eliquis PO 5 mg BID DOLLY Administration Protocol Artificial Tears 2 drops 02/27/19 11:17 02/28/19 10:25 Isopto Tears 0.5% OU 2 drops Q4H PRN Administration Dry Eye(s) Aspirin 81 mg 02/24/19 10:00 02/28/19 10:17 Baby Aspirin PO 81 mg QDAY DOLLY Administration Atorvastatin Calcium 10 mg 02/24/19 22:00 02/27/19 22:28 Atorvastatin PO 10 mg QHS DOLLY Administration Cholecalciferol 400 unit 02/24/19 10:00 02/28/19 10:18 Vitamin D3 PO 400 unit BID DOLLY Administration Famotidine 10 mg 02/23/19 22:00 02/28/19 10:17 Pepcid PO 10 mg BID DOLLY Administration Finasteride 5 mg 02/24/19 10:00 02/28/19 10:17 Proscar PO 5 mg QDAY DOLLY Administration Furosemide 40 mg 02/26/19 18:00 02/28/19 05:50 Lasix IV 40 mg 0600,1800 DOLLY Administration Insulin Glargine 20 units 02/25/19 10:00 02/28/19 10:18 Lantus SUB-Q 20 units BID DOLLY Administration Insulin Human Lispro 15 unit 02/25/19 07:30 02/28/19 08:34 Humalog SUB-Q Not Given AC [facility] Insulin Human Regular 0 units 02/23/19 22:00 02/28/19 08:32 Humulin R SUB-Q Not Given ACHS [facility] Protocol Metoprolol Tartrate 50 mg 02/27/19 12:00 02/28/19 05:50 Metoprolol PO 50 mg Q6HR DOLLY Administration Ondansetron HCl 4 mg 02/23/19 20:33 Zofran IV Q8H PRN Nausea And Vomiting Polyethylene Glycol 17 gm 02/24/19 14:04 Miralax 3350 PO QDAY PRN Constipation Potassium Chloride 20 meq 02/28/19 09:00 02/28/19 08:45 K-Dur PO 03/01/19 01:01 20 meq Q8H DOLLY Administration Prednisone 40 mg 02/28/19 10:00 02/28/19 10:17 Deltasone PO 40 mg QDAY DOLLY Administration Pregabalin 50 mg 02/24/19 22:00 02/27/19 22:27 Pregabalin PO 50 mg QHS DOLLY Administration Sodium Chloride 10 ml 02/23/19 22:00 02/28/19 10:21 Sodium Chloride Flush Syringe 10 Ml IV 10 ml BID DOLLY Administration Sodium Chloride 10 ml 02/23/19 20:33 Sodium Chloride Flush Syringe 10 Ml IV PRN PRN LINE FLUSH Sulfasalazine 500 mg 02/24/19 10:00 02/28/19 10:17 Azulfidine PO 500 mg BID DOLLY Administration Tramadol HCl 50 mg 02/24/19 01:27 02/28/19 11:26 Ultram PO 50 mg QDAY PRN Administration Pain, Moderate (4-6) Triamcinolone Acetonide 1 applic 02/24/19 10:00 02/28/19 10:25 Kenalog TP 1 applic BID DOLLY Administration Zolpidem Tartrate 5 mg 02/24/19 01:31 02/27/19 22:27 Ambien PO 5 mg QHS PRN Administration Sleep
--- NOTE | 2019-02-28 14:12 | Progress Note ---
Assessment and Plan 1. Renal insufficiency: Likely CKD stage 3 / 4. Renal US negative for hydronephrosis. Urine studies ordered. Renal function is stable. Monitor renal function. Avoid nephrotoxic agents. Meds dosage based on GFR. 2. FEN: Volume overload, on Lasix. Monitor lytes. 3. Acute hypoxemic respiratory failure: Combination of COPD and CHF exacerbation. 4. CHF exacerbation: Strict I/O, daily weight, diuresis, afterload reduction. 5. Atrial fibrillation: On Eliquis. Rate controlled. 6. HTN. 7. Diabetes mellitus type 2. Examination: General appearance: well-developed, well-nourished, appears stated age, obese, not in distress HEENT: ATNC, BRETT, hearing intact, vision intact Neck: neck supple, trachea midline Respiratory: Clear to Ascultation Heart: S1S2, irregular, no murmurs Gastrointestinal: normoactive bowel sounds, not tender Integumentary: b/l leg scratch cody Neurologic: able to move extremities, no asterixis, alert and oriented x3 Ext: no edema Subjective Date of service: 02/28/19 Principal diagnosis: HF; AFib; COPD Interval history: Patient was seen and examined at the bedside. Doing ok. Objective - Vital Signs Vital signs: Vital Signs - 12hr 02/28/19 02/28/19 02/28/19 03:04 08:04 09:59 Temperature 98.2 F 96.8 F L Pulse Rate 65 69 Respiratory 16 22 Rate Blood Pressure 133/88 130/90 O2 Sat by Pulse 99 98 98 Oximetry 02/28/19 13:15 Temperature Pulse Rate 95 H Respiratory Rate Blood Pressure 122/85 O2 Sat by Pulse Oximetry - Lab 02/23/19 16:37 02/28/19 04:47 Most recent lab results Calcium 8.6 mg/dL (8.4-10.2) 02/28/19 04:47 Phosphorus 3.80 mg/dL (2.5-4.5) 02/26/19 05:53 Magnesium 2.50 mg/dL (1.7-2.3) H 02/23/19 16:37 Magnesium 2.50 mg/dL (1.7-2.3) H 02/23/19 16:37 Urine Creatinine 30.8 mg/dL (0.1-20.0) H 02/27/19 19:45 Urine Sodium 100 mmol/L 02/27/19 19:45 Medications & Allergies - Medications Allergies/Adverse Reactions: Allergies gabapentin [From Gabarone] Allergy (Verified 02/23/19 16:33) Unknown Home Medications: Home Medications Medication Instructions Recorded Confirmed Last Taken Type Aspirin BABY CHEW TAB 81 mg PO QDAY 02/23/19 02/24/19 Unknown History AtorvaSTATin 10 mg PO QHS 02/23/19 02/24/19 Unknown History Eliquis 5 mg PO BID 02/23/19 02/24/19 Unknown History Finasteride 5 mg PO QDAY 02/23/19 02/24/19 Unknown History Furosemide 80 mg PO QDAY 02/23/19 02/24/19 Unknown History Mapap 650 mg PO Q4H PRN 02/23/19 02/24/19 Unknown History Metoprolol Tartrate 25 mg PO BID 02/23/19 02/24/19 Unknown History Polyethylene Glycol 3350 17 gram PO QDAY PRN 02/23/19 02/24/19 Unknown History Pregabalin 50 mg PO QHS 02/23/19 02/24/19 Unknown History Ranitidine HCl 150 mg PO QDAY 02/23/19 02/24/19 Unknown History Robafen Dm Cough Syrup 10 ml PO Q4H PRN 02/23/19 02/24/19 Unknown History Tramadol HCl 50 mg PO QDAY 02/23/19 02/24/19 Unknown History Triamcinolone Aceton 0.1% (Nf) 1 applic TP BID 02/23/19 02/24/19 Unknown History Vitamin D3 400 UNIT TAB 400 units PO BID 02/23/19 02/24/19 Unknown History Zolpidem Tartrate ER 5 mg PO QHS 02/23/19 02/24/19 Unknown History amLODIPine 10 mg PO QDAY 02/23/19 02/24/19 Unknown History sulfaSALAzine 500 mg PO BID 02/23/19 02/24/19 Unknown History Insulin Glargine,Hum.rec.anlog 40 units SUB-Q BID 02/24/19 02/24/19 02/22/19 History Lispro Insulin [HumaLOG] 34 unit SQ AC 02/24/19 02/24/19 02/22/19 History Active Medications: Generic Name Dose Route Start Last Admin Trade Name Freq PRN Reason Stop Dose Admin Acetaminophen 650 mg 02/23/19 20:33 Tylenol PO Q4H PRN Pain MILD(1-3)/Fever >100.5/TRIMBLE Apixaban 5 mg 02/24/19 10:00 02/28/19 10:17 Eliquis PO 5 mg BID DOLLY Administration Protocol Artificial Tears 2 drops 02/27/19 11:17 02/28/19 10:25 Isopto Tears 0.5% OU 2 drops Q4H PRN Administration Dry Eye(s) Aspirin 81 mg 02/24/19 10:00 02/28/19 10:17 Baby Aspirin PO 81 mg QDAY DOLLY Administration Atorvastatin Calcium 10 mg 02/24/19 22:00 02/27/19 22:28 Atorvastatin PO 10 mg QHS DOLLY Administration Cholecalciferol 400 unit 02/24/19 10:00 02/28/19 10:18 Vitamin D3 PO 400 unit BID DOLLY Administration Famotidine 10 mg 02/23/19 22:00 02/28/19 10:17 Pepcid PO 10 mg BID DOLLY Administration Finasteride 5 mg 02/24/19 10:00 02/28/19 10:17 Proscar PO 5 mg QDAY DOLLY Administration Furosemide 40 mg 02/26/19 18:00 02/28/19 05:50 Lasix IV 40 mg 0600,1800 DOLLY Administration Insulin Glargine 20 units 02/25/19 10:00 02/28/19 10:18 Lantus SUB-Q 20 units BID DOLLY Administration Insulin Human Lispro 15 unit 02/25/19 07:30 02/28/19 12:30 Humalog SUB-Q 15 unit AC DOLLY Administration Insulin Human Regular 0 units 02/23/19 22:00 02/28/19 12:30 Humulin R SUB-Q 4 units ACHS DOLLY Administration Protocol Metoprolol Tartrate 50 mg 02/27/19 12:00 02/28/19 13:15 Metoprolol PO 50 mg Q6HR DOLLY Administration Naphazoline HCl/Pheniramine Maleate 2 drops 02/28/19 12:12 Visine-A OU Q6H PRN Itching Ondansetron HCl 4 mg 02/23/19 20:33 Zofran IV Q8H PRN Nausea And Vomiting Polyethylene Glycol 17 gm 02/24/19 14:04 Miralax 3350 PO QDAY PRN Constipation Potassium Chloride 20 meq 02/28/19 09:00 02/28/19 08:45 K-Dur PO 03/01/19 01:01 20 meq Q8H DOLLY Administration Prednisone 40 mg 02/28/19 10:00 02/28/19 10:17 Deltasone PO 40 mg QDAY DOLLY Administration Pregabalin 50 mg 02/24/19 22:00 02/27/19 22:27 Pregabalin PO 50 mg QHS DOLLY Administration Sodium Chloride 10 ml 02/23/19 22:00 02/28/19 10:21 Sodium Chloride Flush Syringe 10 Ml IV 10 ml BID DOLLY Administration Sodium Chloride 10 ml 02/23/19 20:33 Sodium Chloride Flush Syringe 10 Ml IV PRN PRN LINE FLUSH Sulfasalazine 500 mg 02/24/19 10:00 02/28/19 10:17 Azulfidine PO 500 mg BID DOLLY Administration Tramadol HCl 50 mg 02/24/19 01:27 02/28/19 11:26 Ultram PO 50 mg QDAY PRN Administration Pain, Moderate (4-6) Triamcinolone Acetonide 1 applic 02/24/19 10:00 02/28/19 10:25 Kenalog TP 1 applic BID DOLLY Administration Zolpidem Tartrate 5 mg 02/24/19 01:31 02/27/19 22:27 Ambien PO 5 mg QHS PRN Administration Sleep
[2019-02-28] MEDS: ZOLPIDEM 5 MG TAB PO PRN (22:08)
[2019-02-28] MEDS: PREGABALIN 25 MG CAP PO SCH (22:11)
[2019-03-01] MEDS: METOPROLOL TARTRATE 25 MG TAB PO SCH ×3 (02:19→11:54)
[2019-03-01] MEDS: POTASSIUM CHLORIDE ER 20 MEQ TAB PO SCH (02:19)
[2019-03-01] MEDS: FUROSEMIDE 40 MG/4 ML INJ IV SCH (06:16)
[2019-03-01 06:21] LABS: Calcium 8.9 mg/dL (8.4-10.2)
[2019-03-01] MEDS: INSULIN LISPRO 100 UNIT/ML SUB-Q SCH ×2 (08:40→11:53)
[2019-03-01] MEDS: INSULIN REGULAR, HUMAN 100 UNITS/1 ML SUB-Q SCH ×2 (08:40→11:53)
[2019-03-01] MEDS ORDERED: REGADENOSON 0.4 MG/5 ML INJ IV ONE ×2 (09:08→09:09)
--- NOTE | 2019-03-01 09:40 | Progress Note ---
Assessment and Plan 1. Renal insufficiency: Likely CKD stage 3 / 4. Renal US negative for hydronephrosis. Urine studies ordered. Renal function is stable. Monitor renal function. Avoid nephrotoxic agents. Meds dosage based on GFR. 2. FEN: Volume overload, on Lasix. Monitor lytes. 3. Acute hypoxemic respiratory failure: Combination of COPD and CHF exacerbation. 4. CHF exacerbation: Strict I/O, daily weight, diuresis, afterload reduction. 5. Atrial fibrillation: On Eliquis. Rate controlled. 6. HTN. 7. Diabetes mellitus type 2. F/u with me in 2 weeks. Examination: General appearance: well-developed, well-nourished, appears stated age, obese, not in distress HEENT: ATNC, BRETT, hearing intact, vision intact Neck: neck supple, trachea midline Respiratory: Clear to Ascultation Heart: S1S2, irregular, no murmur Gastrointestinal: normoactive bowel sounds, not tender Integumentary: b/l leg scratch cody Neurologic: able to move extremities, no asterixis, alert and oriented x3 Ext: no edema Subjective Date of service: 03/01/19 Principal diagnosis: HF; AFib; COPD Interval history: Patient was seen and examined at the bedside. Doing ok. Objective - Vital Signs Vital signs: Vital Signs - 12hr 02/28/19 02/28/19 03/01/19 22:00 22:40 04:00 Temperature Pulse Rate 85 Pulse Rate [ 73 Left Radial] Respiratory 26 H 24 26 H Rate Blood Pressure O2 Sat by Pulse 97 97 Oximetry 03/01/19 03/01/19 03/01/19 06:16 07:35 08:42 Temperature 98.0 F Pulse Rate 73 74 Pulse Rate [ Left Radial] Respiratory 20 Rate Blood Pressure 123/80 141/85 130/96 O2 Sat by Pulse 95 Oximetry 03/01/19 03/01/19 03/01/19 09:13 09:16 09:17 Temperature Pulse Rate Pulse Rate [ Left Radial] Respiratory Rate Blood Pressure 141/99 125/83 131/83 O2 Sat by Pulse Oximetry 03/01/19 03/01/19 03/01/19 09:19 09:21 09:24 Temperature Pulse Rate Pulse Rate [ Left Radial] Respiratory Rate Blood Pressure 132/80 123/79 128/82 O2 Sat by Pulse Oximetry - Lab 02/23/19 16:37 03/01/19 05:35 Most recent lab results Calcium 8.9 mg/dL (8.4-10.2) 03/01/19 05:35 Phosphorus 3.80 mg/dL (2.5-4.5) 02/26/19 05:53 Magnesium 2.00 mg/dL (1.7-2.3) 03/01/19 05:35 Urine Creatinine 30.8 mg/dL (0.1-20.0) H 02/27/19 19:45 Urine Sodium 100 mmol/L 02/27/19 19:45 Medications & Allergies - Medications Allergies/Adverse Reactions: Allergies gabapentin [From Gabarone] Allergy (Verified 02/23/19 16:33) Unknown Home Medications: Home Medications Medication Instructions Recorded Confirmed Last Taken Type Aspirin BABY CHEW TAB 81 mg PO QDAY 02/23/19 02/24/19 Unknown History AtorvaSTATin 10 mg PO QHS 02/23/19 02/24/19 Unknown History Eliquis 5 mg PO BID 02/23/19 02/24/19 Unknown History Finasteride 5 mg PO QDAY 02/23/19 02/24/19 Unknown History Furosemide 80 mg PO QDAY 02/23/19 02/24/19 Unknown History Mapap 650 mg PO Q4H PRN 02/23/19 02/24/19 Unknown History Polyethylene Glycol 3350 17 gram PO QDAY PRN 02/23/19 02/24/19 Unknown History Pregabalin 50 mg PO QHS 02/23/19 02/24/19 Unknown History Ranitidine HCl 150 mg PO QDAY 02/23/19 02/24/19 Unknown History Robafen Dm Cough Syrup 10 ml PO Q4H PRN 02/23/19 02/24/19 Unknown History Triamcinolone Aceton 0.1% (Nf) 1 applic TP BID 02/23/19 02/24/19 Unknown History Vitamin D3 400 UNIT TAB 400 units PO BID 02/23/19 02/24/19 Unknown History Zolpidem Tartrate ER 5 mg PO QHS 02/23/19 02/24/19 Unknown History amLODIPine 10 mg PO QDAY 02/23/19 02/24/19 Unknown History sulfaSALAzine 500 mg PO BID 02/23/19 02/24/19 Unknown History Insulin Glargine,Hum.rec.anlog 40 units SUB-Q BID 02/24/19 02/24/19 02/22/19 History Lispro Insulin [HumaLOG] 34 unit SQ AC 02/24/19 02/24/19 02/22/19 History Metoprolol [Lopressor TAB] 50 mg PO Q6H #120 tablet 03/01/19 Unknown Rx Tramadol HCl 50 mg PO QDAY #5 tab 03/01/19 Unknown Rx Active Medications: Generic Name Dose Route Start Last Admin Trade Name Freq PRN Reason Stop Dose Admin Acetaminophen 650 mg 02/23/19 20:33 Tylenol PO Q4H PRN Pain MILD(1-3)/Fever >100.5/TRIMBLE Apixaban 5 mg 02/24/19 10:00 02/28/19 22:11 Eliquis PO 5 mg BID DOLLY Administration Protocol Artificial Tears 2 drops 02/27/19 11:17 02/28/19 22:13 Isopto Tears 0.5% OU 2 drops Q4H PRN Administration Dry Eye(s) Aspirin 81 mg 02/24/19 10:00 02/28/19 10:17 Baby Aspirin PO 81 mg QDAY DOLLY Administration Atorvastatin Calcium 10 mg 02/24/19 22:00 03/01/19 02:19 Atorvastatin PO 10 mg QHS DOLLY Administration Cholecalciferol 400 unit 02/24/19 10:00 02/28/19 22:10 Vitamin D3 PO 400 unit BID DOLLY Administration Famotidine 10 mg 02/23/19 22:00 02/28/19 22:10 Pepcid PO 10 mg BID DOLLY Administration Finasteride 5 mg 02/24/19 10:00 02/28/19 10:17 Proscar PO 5 mg QDAY DOLLY Administration Furosemide 40 mg 02/26/19 18:00 03/01/19 06:16 Lasix IV 40 mg 0600,1800 DOLLY Administration Insulin Glargine 20 units 02/25/19 10:00 02/28/19 22:11 Lantus SUB-Q 20 units BID DOLLY Administration Insulin Human Lispro 15 unit 02/25/19 07:30 02/28/19 18:00 Humalog SUB-Q 15 unit AC DOLLY Administration Insulin Human Regular 0 units 02/23/19 22:00 02/28/19 22:12 Humulin R SUB-Q 6 units ACHS DOLLY Administration Protocol Metoprolol Tartrate 50 mg 02/27/19 12:00 03/01/19 06:16 Metoprolol PO 50 mg Q6HR DOLLY Administration Naphazoline HCl/Pheniramine Maleate 2 drops 02/28/19 12:12 Visine-A OU Q6H PRN Itching Ondansetron HCl 4 mg 02/23/19 20:33 Zofran IV Q8H PRN Nausea And Vomiting Polyethylene Glycol 17 gm 02/24/19 14:04 Miralax 3350 PO QDAY PRN Constipation Prednisone 40 mg 02/28/19 10:00 02/28/19 10:17 Deltasone PO 40 mg QDAY DOLLY Administration Pregabalin 50 mg 02/24/19 22:00 02/28/19 22:11 Pregabalin PO 50 mg QHS DOLLY Administration Sodium Chloride 10 ml 02/23/19 22:00 02/28/19 22:14 Sodium Chloride Flush Syringe 10 Ml IV 10 ml BID DOLLY Administration Sodium Chloride 10 ml 02/23/19 20:33 Sodium Chloride Flush Syringe 10 Ml IV PRN PRN LINE FLUSH Sulfasalazine 500 mg 02/24/19 10:00 02/28/19 22:11 Azulfidine PO 500 mg BID DOLLY Administration Tramadol HCl 50 mg 02/28/19 21:27 02/28/19 22:08 Ultram PO 50 mg BID PRN Administration Pain, Moderate (4-6) Triamcinolone Acetonide 1 applic 02/24/19 10:00 02/28/19 22:13 Kenalog TP 1 applic BID DOLLY Administration Zolpidem Tartrate 5 mg 02/24/19 01:31 02/28/19 22:08 Ambien PO 5 mg QHS PRN Administration Sleep
--- NOTE | 2019-03-01 09:46 | Treadmill Report ---
LEXISCAN STRESS TEST REASON FOR STUDY: Cardiomyopathy. STRESS TEST PROTOCOL: The patient received 0.4 mg of Lexiscan intravenously over 10 seconds. Tc-99m Tetrofosmin was subsequently injected. Baseline ECG: Atrial fibrillation with nonspecific ST segment and T-wave abnormalities. Lexiscan ECG: No significant change from baseline. No chest pain. No other arrhythmias other than baseline atrial fibrillation. IMPRESSION: Nondiagnostic due to baseline ECG abnormalities. Nuclear imaging report to follow. JOB# [id number] STANISLAV/SRIKANTH RAMIREZ
[2019-03-01] MEDS: FAMOTIDINE 10 MG TAB PO SCH (10:47)
[2019-03-01] MEDS: APIXABAN 5 MG TAB PO SCH (10:48)
[2019-03-01] MEDS: FINASTERIDE 5 MG TAB PO SCH (10:48)
[2019-03-01] MEDS: ASPIRIN 81 MG TAB CHEW PO SCH (10:48)
[2019-03-01] MEDS: predniSONE 20 MG TAB PO SCH (10:48)
[2019-03-01] MEDS: sulfaSALAzine 500 MG TAB PO SCH (10:49)
[2019-03-01] MEDS: CHOLECALCIFEROL (VIT D3) 400 UNIT TAB PO SCH (10:49)
[2019-03-01] MEDS: INSULIN GLARGINE 100 UNITS/ML SUB-Q SCH (10:49)
[2019-03-01] MEDS: HYPROMELLOSE 0.5% OPHTH SOLN 15 ML OU PRN (10:51)
[2019-03-01] MEDS: TRIAMCINOLONE 0.1% CREAM 15 GM TP SCH (10:51)
[2019-03-01] MEDS: traMADol 50 MG TAB PO PRN (10:59)
--- NOTE | 2019-03-01 11:07 | Progress Note ---
Assessment and Plan Convert IV lasix to PO lasix. Cont lopressor. No ACEI/ARB at this time in setting of renal insufficiency. Proceed with lexiscan MPI stress test. The patient has been seen in conjunction with Dr. Allison who agrees with the assessment and plan of care. 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 (6) Atrial fibrillation Current Visit: Yes Status: Chronic Qualifiers: Atrial fibrillation type: unspecified Qualified Code(s): I48.91 - Unspecified atrial fibrillation (7) HTN (hypertension) Current Visit: Yes Status: Chronic Qualifiers: Hypertension type: essential hypertension Qualified Code(s): I10 - Essential (primary) hypertension (8) Diabetes Current Visit: Yes Status: Chronic (9) CKD (chronic kidney disease) Current Visit: Yes Status: Chronic (10) Obesity Current Visit: Yes Status: Chronic Subjective Date of service: 03/01/19 Principal diagnosis: HF; AFib; COPD Interval history: Pt for stress test, no current cardiac complaints. tele reviewed - in AFib with CVR HR 90s. Objective Last Vital Signs Temp 98.0 F 03/01/19 07:35 Pulse 74 03/01/19 07:35 Resp 20 03/01/19 10:59 BP 128/82 03/01/19 09:24 Pulse Ox 95 03/01/19 07:35 - Physical Examination General: No Apparent Distress HEENT: Positive: PERRL, Normocephaly, Mucus Membranes Moist Neck: Positive: neck supple, trachea midline Cardiac: Positive: irregularly irregular, S1/S2 Lungs: Positive: Decreased Breath Sounds Neuro: Positive: Grossly Intact Abdomen: Negative: Tender Skin: Negative: Rash Musculoskeletal: No Pain Extremities: Present: edema (trace BLE) - Labs and Meds Comprehensive Metabolic Panel 03/01/19 Range/Units 05:35 Sodium 145 (137-145) mmol/L Potassium 3.6 (3.6-5.0) mmol/L Chloride 101.2 (98-107) mmol/L Carbon Dioxide 30 (22-30) mmol/L BUN 48 H (9-20) mg/dL Creatinine 1.9 H (0.8-1.5) mg/dL Glucose 195 H (75-100) mg/dL Calcium 8.9 (8.4-10.2) mg/dL - Imaging and Cardiology EKG: report reviewed, image reviewed Echo: report reviewed
--- NOTE | 2019-03-01 11:49 | Event Note ---
Date: 03/01/19 Lexiscan MPI stress test this AM showed fixed defects, no significant ischemia, EF 39%. Currently stable cardiac status. Pt may discharge home from cardiology standpoint. [facility]2 weeks. Luisa PLEITEZ NP / DR. LEE
[2019-03-01 11:55] VITALS: BP 140/85
--- NOTE | 2019-03-01 12:25 | Discharge Summary ---
Providers - Providers Date of Admission: 02/24/19 11:28 Date of discharge: 03/01/19 Attending physician: TAPAN GOODRICH 02/25/19 09:08 Consult to Physician [CONS] Routine Comment: called office/ luda Consulting Provider: SAMUEL CULVER Physician Instructions: Reason For Exam: DELMIS on possible CKD 02/26/19 08:30 Physical Therapy Evaluation and Treat [CONS] Routine Comment: Reason For Exam: Weakness 02/26/19 12:36 Consult to Physician [CONS] Routine Comment: paged overhead/ luda Consulting Provider: GABY GARCIA Physician Instructions: Reason For Exam: Cardiomyopathy with EF of 25-30% Primary care physician: CASE MAKER Hospitalization Reason for admission: Acute respiratory failure with hypoxia, Acute severe COPD exacerbation Condition: Stable Hospital course: Reason for admission: The patient is a 78 YO male with history significant for Obeisty, DM type 2, HTN, COPD, Atrial Fib and CHF who presented to [facility] ED on 02/23 with c/o worsening shortness of breath of 3 days duration. EMS found him with pulse oximetry of 80% on room air. Final discharge diagnosis/Hospital course: / Acute respiratory failure with hypoxia due to acute severe COPD and CHF exacerbation Treated with supplemental O2, pulse oximetry, NIPPV at night, nebulizer therapy, / Acute severe COPD exacerbation Treated with neb tx, oral steroid and empiric antibiotic therapy Acute on chronic systolic HF with EF of 25-30% Treated with IV Lasix and BB not on ACEI due to DELMIS Status post stress test which was negative for acute ischemia, EF estimated at 39% Cardiology recommended medical management / HTN (hypertension) Treated with amlodipine and metoprolol / DM2 with hyperglycemia Treated with ADA diet, insulin regimen, accu check, hypoglycemia protocol / Atrial fibrillation, chronic Treated with metoprolol and eliquis / DELMIS (acute kidney injury) v acute on CRF ? cardiorenal syndrome Treated with diuretics, cr level stable / Hypokalemia Repleted and improved / Obesity with BMI of 38.8 Lifestyle modification recommended Disposition: [facility] Time spent for discharge: 40 minutes Core Measure Documentation - Palliative Care Palliative Care/ Comfort Measures: Not Applicable - Core Measures Any of the following diagnoses?: heart failure - Heart Failure Discharge Requirements JAROD/ARB for LVSD if EF <40%: No Reason for no JAROD/ARB: Renal impairment Beta jimmy at discharge: Yes Exam - Constitutional Vitals: Temp Pulse Resp BP Pulse Ox 98.0 F 88 20 140/85 95 03/01/19 07:35 03/01/19 11:54 03/01/19 10:59 03/01/19 11:54 03/01/19 07:35 General appearance: Present: no acute distress, obese - EENT Eyes: Present: PERRL, EOM intact ENT: hearing intact, clear oral mucosa - Neck Neck: Present: supple, normal ROM - Respiratory Respiratory effort: normal Respiratory: bilateral: CTA - Cardiovascular Rhythm: irregularly irregular Heart Sounds: Present: S1 & S2. Absent: rub, click - Extremities Extremities: No edema - Abdominal General gastrointestinal: Present: soft, non-tender, non-distended, normal bowel sounds - Integumentary Integumentary: Present: clear, warm, dry - Musculoskeletal Musculoskeletal: gait normal, strength equal bilaterally - Psychiatric Psychiatric: cooperative - Neurologic Neurologic: moves all extremities Plan Follow up with: PRIMARY CARE, [Primary Care Provider] - 7 Days Prescriptions: Metoprolol [Lopressor TAB] 50 mg PO Q6H #120 tablet Tramadol HCl 50 mg PO QDAY #5 tab
--- NOTE | 2019-03-01 22:40 | Treadmill Report ---
THALLIUM REPORT REASON FOR STUDY: Cardiomyopathy. IMAGING PROTOCOL: The patient received 10 mCi of technetium-99m Tetrofosmin for rest imaging, and 28 mCi of technetium-99m Tetrofosmin for stress imaging. Imaging for all procedures was completed 30-90 minutes following the initial injection of Technetium 99m Tetrofosmin. SPECT imaging in the 180 degree arc was performed in the right anterior oblique projection. Computerized reconstruction of the images was performed for analysis. NUCLEAR IMAGING RESULTS: Normal left ventricular cavity size with no change from stress to rest. Distribution of radionuclide within the left ventricle revealed a medium size area of photo-induction involving the inferior and inferoapical region. The degree of photo-induction is mild to moderate. Rest imaging does not show any significant improvement in this defect. Gated SPECT imaging revealed moderate global left ventricular hypokinesis. The calculated left ventricular ejection fraction is 39%. IMPRESSION: Medium size fixed inferior and inferoapical defect. Moderate global left ventricular hypokinesis. EF 39%. These findings suggest prior infarction involving the right coronary artery territory. However, a cardiomyopathic process may be present in this patient. No evidence of significant stress-induced ischemia. JOB# [id number] STANISLAV/SRIKANTH RAMIREZ
[2019-03-02] MEDS ORDERED: FUROSEMIDE 40 MG TAB PO SCH (10:00)
== END 2019-03-01 14:05 | DRG 682 ==
LOC: ED 16:21 → 2B-ACE 20:33 → OBSVTOIN 02-24 11:28
PROVIDERS: ADMIT Internal Medicine; ATTEND Internal Medicine
PROC: 4A033R1 Measurement of Arterial Saturation, Peripheral, Percutaneous Approach (ICD-10-PCS; principal; 2019-02-23)
PROC: 5A09357 Assistance with Respiratory Ventilation, Less than 24 Consecutive Hours, Continuous Positive Airway Pressure (ICD-10-PCS; 2019-02-23)
PROC: 5A09357 Assistance with Respiratory Ventilation, Less than 24 Consecutive Hours, Continuous Positive Airway Pressure (ICD-10-PCS; 2019-02-24)
PROC: 5A09357 Assistance with Respiratory Ventilation, Less than 24 Consecutive Hours, Continuous Positive Airway Pressure (ICD-10-PCS; 2019-02-26)
PROC: 5A09357 Assistance with Respiratory Ventilation, Less than 24 Consecutive Hours, Continuous Positive Airway Pressure (ICD-10-PCS; 2019-02-27)
PROC: 5A09357 Assistance with Respiratory Ventilation, Less than 24 Consecutive Hours, Continuous Positive Airway Pressure (ICD-10-PCS; 2019-02-28)
PROC: 5A09357 Assistance with Respiratory Ventilation, Less than 24 Consecutive Hours, Continuous Positive Airway Pressure (ICD-10-PCS; 2019-03-01)
DX: N17.9 Acute kidney failure, unspecified (principal); J96.01 Acute respiratory failure with hypoxia; I50.23 Acute on chronic systolic (congestive) heart failure; J44.1 Chronic obstructive pulmonary disease with (acute) exacerbation; I13.0 Hypertensive heart and chronic kidney disease with heart failure and stage 1 through stage 4 chronic kidney disease, or unspecified chronic kidney disease; I48.20 Chronic atrial fibrillation, unspecified; I42.9 Cardiomyopathy, unspecified; E66.2 Morbid (severe) obesity with alveolar hypoventilation; E11.22 Type 2 diabetes mellitus with diabetic chronic kidney disease; E11.65 Type 2 diabetes mellitus with hyperglycemia; E87.6 Hypokalemia; N18.9 Chronic kidney disease, unspecified; Z82.49 Family history of ischemic heart disease and other diseases of the circulatory system; Z68.38 Body mass index [BMI] 38.0-38.9, adult; Z83.3 Family history of diabetes mellitus
CPT/HCPCS: 36415; 36600; 71045; 76770; 78452; 80048; 80053; 81001; 82140; 82550; 82570; 82803; 82962; 83036; 83735; 83880; 83970; 84100; 84300; 84439; 84443; 84484; 85025; 85610; 85730; 87040; 87116; 93005; 93010; 93017; 93306; 93308; 93321; 93325; 94644; 94660; 94760; G0378; A9270-GY; A9502; J0456; J1815; J1940; J2785; J2920; J2930; J3475; J7050; J7512

== ENCOUNTER 2019-07-24 01:30 | Emergency (ER) | payer OTHER ==
[2019-07-24] MEDS ORDERED: KETOROLAC 30 MG/1 ML INJ IV ONE (01:51)
[2019-07-24] MEDS ORDERED: MORPHINE 4 MG/1 ML INJ IV ONE (01:51)
--- NOTE | 2019-07-24 02:46 | Cat Scan Report ---
CT ABDOMEN AND PELVIS WITHOUT CONTRAST INDICATION / CLINICAL INFORMATION: RENAL STONE PROTOCOL!! RIGHT flank pain, urine retention. TECHNIQUE: Axial CT images were obtained through the abdomen and pelvis without IV contrast. All CT scans at [facility] location are performed using CT dose reduction for ALARA by means of automated exposure control. COMPARISON: Ultrasound renal dated 02/25/19 FINDINGS: LOWER CHEST: No significant abnormality. LIVER: No significant abnormality. GALLBLADDER: Several small calcified gallstones without gallbladder wall thickening or inflammation. BILE DUCTS: No significant abnormality. PANCREAS: Multilobulated cystic lesion in the head/uncinate process of the pancreas. Lesion measures 4.2 x 4.4 x 5.8 cm. No definite focal soft tissue component or calcification. Mild pancreatic atrophy of the remainder of the gland. No pancreatic ductal dilatation. SPLEEN: No significant abnormality. ADRENALS: No significant abnormality. RIGHT KIDNEY and URETER: No significant abnormality. LEFT KIDNEY and URETER: No significant abnormality. STOMACH and SMALL BOWEL: No significant abnormality. COLON: No significant abnormality. APPENDIX: No significant abnormality. PERITONEUM: No free fluid. No free air. No fluid collection. LYMPH NODES: No significant adenopathy. AORTA and ARTERIES: Mild atherosclerotic calcification without acute abnormality. IVC and VEINS: No significant abnormality. URINARY BLADDER: No significant abnormality. REPRODUCTIVE ORGANS: Prostate is mildly enlarged. ADDITIONAL FINDINGS: None. SKELETAL SYSTEM: No significant abnormality. IMPRESSION: 1. No urinary tract stones or hydronephrosis. 2. No inflammatory process or bowel obstruction. 3. Cystic lesion in the head of the pancreas. Follow-up CT abdomen without and with contrast pancreat ic protocol is recommended in 6 months. Signer Name: Concha Garnett MD Signed: 07/24/2019 2:42 AM Workstation Name: [email or web address]
[2019-07-24 03:20] LABS: Bacteria,Urine 1+ /HPF (Negative); Bilirubin,Urine NEG (Negative); Blood,Urine MOD (Negative); Color,Urine Yellow (Yellow); Mucus,Urine FEW /HPF; Urobilinogen,Urine < 2.0 mg/dL (<2.0)
[2019-07-24 03:35] LABS: Basophils # (Auto) 0.1 K/mm3 (0.0-0.1); Basophils % (Auto) 0.7 % (0.0-1.8); Hematocrit 42.3 % (35.5-45.6); Hemoglobin 14.1 gm/dl (11.8-15.2); Lymphocytes # (Auto) 1.4 K/mm3 (1.2-5.4); Lymphocytes % (Auto) 11.5 % (13.4-35.0); Mean Corpuscular HGB Conc 34 % (32-34); Mean Corpuscular Volume 90 fl (84-94); Monocytes # (Auto) 0.9 K/mm3 (0.0-0.8); Monocytes % (Auto) 7.1 % (0.0-7.3); Platelet Count 149 K/mm3 (140-440); Red Blood Count 4.71 M/mm3 (3.65-5.03); Red Cell Distribution Width 17.4 % (13.2-15.2)
[2019-07-24 03:55] LABS: Calcium 9.4 mg/dL (8.4-10.2)
--- NOTE | 2019-07-24 04:17 | Emergency Department Report ---
ED General Adult HPI - General Chief complaint: Back Pain/Injury Stated complaint: BACK PAIN X 1WEEK Time Seen by Provider: 07/24/19 01:44 Source: patient, EMS Mode of arrival: Stretcher Limitations: No Limitations - History of Present Illness Initial comments: Patient is a 78-year-old male with a past medical history of diabetes hypertension and atrial fibrillation who is presenting with back pain. Patient has back pain at baseline however he states that for the last several days pain is worsened. He denies any trauma. Patient does state that he has had some urinary retention over the last 6 to 7 hours. He denies any fecal incontinence. Patient states he has his urge that he needs to urinate but has not. Patient also states he has some pain in the right flank which is radiating now to the center back. Patient states his low back pain is so intense every time he moves the pain is 10 out of 10 in severity. Severity scale (0 -10): 5 - Related Data Home Medications Medication Instructions Recorded Confirmed Last Taken Aspirin BABY CHEW TAB 81 mg PO QDAY 02/23/19 02/24/19 Unknown AtorvaSTATin 10 mg PO QHS 02/23/19 02/24/19 Unknown Eliquis 5 mg PO BID 02/23/19 02/24/19 Unknown Finasteride 5 mg PO QDAY 02/23/19 02/24/19 Unknown Furosemide 80 mg PO QDAY 02/23/19 02/24/19 Unknown Mapap 650 mg PO Q4H PRN 02/23/19 02/24/19 Unknown Polyethylene Glycol 3350 17 gram PO QDAY PRN 02/23/19 02/24/19 Unknown Pregabalin 50 mg PO QHS 02/23/19 02/24/19 Unknown Ranitidine HCl 150 mg PO QDAY 02/23/19 02/24/19 Unknown Robafen Dm Cough Syrup 10 ml PO Q4H PRN 02/23/19 02/24/19 Unknown Triamcinolone Aceton 0.1% (Nf) 1 applic TP BID 02/23/19 02/24/19 Unknown Vitamin D3 400 UNIT TAB 400 units PO BID 02/23/19 02/24/19 Unknown Zolpidem Tartrate ER 5 mg PO QHS 02/23/19 02/24/19 Unknown amLODIPine 10 mg PO QDAY 02/23/19 02/24/19 Unknown sulfaSALAzine 500 mg PO BID 02/23/19 02/24/19 Unknown Insulin Glargine,Hum.rec.anlog 40 units SUB-Q BID 02/24/19 02/24/19 02/22/19 Lispro Insulin [HumaLOG] 34 unit SQ AC 02/24/19 02/24/19 02/22/19 Previous Rx's Medication Instructions Recorded Last Taken Type Metoprolol [Lopressor TAB] 50 mg PO Q6H #120 tablet 03/01/19 Unknown Rx Tramadol HCl 50 mg PO QDAY #5 tab 03/01/19 Unknown Rx HYDROcodone/APAP 5-325 [[place] 1 each PO Q6HR PRN #6 tablet 07/24/19 Unknown Rx 5/325] methOCARBAMOL [Robaxin TAB] 500 mg PO Q6H PRN #14 tablet 07/24/19 Unknown Rx Allergies Allergy/AdvReac Type Severity Reaction Status Date / Time gabapentin [From Gabarone] Allergy Unknown Verified 07/24/19 02:01 ED Review of Systems ROS: Stated complaint: BACK PAIN X 1WEEK Other details as noted in HPI Comment: All other systems reviewed and negative ED Past Medical Hx - Past Medical History Hx Hypertension: Yes Hx Congestive Heart Failure: Yes Hx Diabetes: Yes Hx Arthritis: Yes (psoriatic arthritis) Hx COPD: Yes Additional medical history: AFIB - Surgical History Additional Surgical History: hernia - Social History Smoking Status: Unknown if ever smoked Substance Use Type: None - Medications Home Medications: Home Medications Medication Instructions Recorded Confirmed Last Taken Type Aspirin BABY CHEW TAB 81 mg PO QDAY 02/23/19 02/24/19 Unknown History AtorvaSTATin 10 mg PO QHS 02/23/19 02/24/19 Unknown History Eliquis 5 mg PO BID 02/23/19 02/24/19 Unknown History Finasteride 5 mg PO QDAY 02/23/19 02/24/19 Unknown History Furosemide 80 mg PO QDAY 02/23/19 02/24/19 Unknown History Mapap 650 mg PO Q4H PRN 02/23/19 02/24/19 Unknown History Polyethylene Glycol 3350 17 gram PO QDAY PRN 02/23/19 02/24/19 Unknown History Pregabalin 50 mg PO QHS 02/23/19 02/24/19 Unknown History Ranitidine HCl 150 mg PO QDAY 02/23/19 02/24/19 Unknown History Robafen Dm Cough Syrup 10 ml PO Q4H PRN 02/23/19 02/24/19 Unknown History Triamcinolone Aceton 0.1% (Nf) 1 applic TP BID 02/23/19 02/24/19 Unknown History Vitamin D3 400 UNIT TAB 400 units PO BID 02/23/19 02/24/19 Unknown History Zolpidem Tartrate ER 5 mg PO QHS 02/23/19 02/24/19 Unknown History amLODIPine 10 mg PO QDAY 02/23/19 02/24/19 Unknown History sulfaSALAzine 500 mg PO BID 02/23/19 02/24/19 Unknown History Insulin Glargine,Hum.rec.anlog 40 units SUB-Q BID 02/24/19 02/24/19 02/22/19 History Lispro Insulin [HumaLOG] 34 unit SQ AC 02/24/19 02/24/19 02/22/19 History Metoprolol [Lopressor TAB] 50 mg PO Q6H #120 tablet 03/01/19 Unknown Rx Tramadol HCl 50 mg PO QDAY #5 tab 03/01/19 Unknown Rx HYDROcodone/APAP 5-325 [[place] 1 each PO Q6HR PRN #6 tablet 07/24/19 Unknown Rx 5/325] methOCARBAMOL [Robaxin TAB] 500 mg PO Q6H PRN #14 tablet 07/24/19 Unknown Rx ED Physical Exam - General Limitations: No Limitations General appearance: alert, in no apparent distress - Head Head exam: Present: atraumatic, normocephalic - Eye Eye exam: Present: normal appearance - ENT ENT exam: Present: mucous membranes moist - Neck Neck exam: Present: normal inspection - Respiratory Respiratory exam: Present: normal lung sounds bilaterally. Absent: respiratory distress, wheezes, rales, rhonchi - Cardiovascular Cardiovascular Exam: Present: tachycardia, irregular rhythm. Absent: systolic murmur, diastolic murmur, rubs, gallop - GI/Abdominal GI/Abdominal exam: Present: soft, normal bowel sounds. Absent: distended, tenderness, guarding, rebound - Rectal Rectal exam: Present: deferred - Extremities Exam Extremities exam: Present: normal inspection - Back Exam Back exam: Present: normal inspection, paraspinal tenderness, vertebral tenderness - Neurological Exam Neurological exam: Present: alert, oriented X3 - Psychiatric Psychiatric exam: Present: normal affect, normal mood - Skin Skin exam: Present: warm, dry, intact, normal color. Absent: rash ED Course Vital Signs 07/24/19 07/24/19 07/24/19 01:42 01:53 02:01 Temperature 98.6 F Pulse Rate 164 H 165 H 127 H Respiratory 16 24 20 Rate Blood Pressure 131/94 124/86 O2 Sat by Pulse 99 98 96 Oximetry 07/24/19 07/24/19 02:31 03:01 Temperature Pulse Rate 135 H 104 H Respiratory 16 21 Rate Blood Pressure 127/82 O2 Sat by Pulse 98 92 Oximetry ED Medical Decision Making - Lab Data Result diagrams: 07/24/19 02:50 07/24/19 02:50 Lab Results 07/24/19 07/24/19 07/24/19 Range/Units 02:50 02:50 Unknown WBC 12.2 H (4.5-11.0) K/mm3 RBC 4.71 (3.65-5.03) M/mm3 Hgb 14.1 (11.8-15.2) gm/dl Hct 42.3 (35.5-45.6) % MCV 90 (84-94) fl MCH 30 (28-32) pg MCHC 34 (32-34) % RDW 17.4 H (13.2-15.2) % Plt Count 149 (140-440) K/mm3 Lymph % (Auto) 11.5 L (13.4-35.0) % [place] % (Auto) 7.1 (0.0-7.3) % Eos % (Auto) 0.0 (0.0-4.3) % Baso % (Auto) 0.7 (0.0-1.8) % Lymph # 1.4 (1.2-5.4) K/mm3 [place] # 0.9 H (0.0-0.8) K/mm3 Eos # 0.0 (0.0-0.4) K/mm3 Baso # 0.1 (0.0-0.1) K/mm3 Seg Neutrophils % 80.7 H (40.0-70.0) % Seg Neutrophils # 9.8 H (1.8-7.7) K/mm3 Sodium 140 (137-145) mmol/L Potassium 4.3 (3.6-5.0) mmol/L Chloride 99.8 (98-107) mmol/L Carbon Dioxide 26 (22-30) mmol/L Anion Gap 19 mmol/L BUN 37 H (9-20) mg/dL Creatinine 2.0 H (0.8-1.5) mg/dL Estimated GFR 33 ml/min BUN/Creatinine Ratio 19 % Glucose 304 H (75-100) mg/dL Calcium 9.4 (8.4-10.2) mg/dL Urine Color Yellow (Yellow) Urine Turbidity Clear (Clear) Urine pH 5.0 (5.0-7.0) Ur Specific [place] 1.015 (1.003-1.030) Urine Protein 100 mg/dl (Negative) mg/dL Urine Glucose (UA) 50 (Negative) mg/dL Urine Ketones Neg (Negative) mg/dL Urine Blood Mod (Negative) Urine Nitrite Neg (Negative) Urine Bilirubin Neg (Negative) Urine Urobilinogen < 2.0 (<2.0) mg/dL Ur Leukocyte Esterase Neg (Negative) Urine WBC (Auto) 1.0 (0.0-6.0) /HPF Urine RBC (Auto) 9.0 (0.0-6.0) /HPF U Epithel Cells (Auto) < 1.0 (0-13.0) /HPF Urine Bacteria (Auto) 1+ (Negative) /HPF Urine Mucus Few /HPF - Radiology Data Ordering Physician: MANOLO PENDLETON MD Date of Service: 07/24/19 Procedure(s): CT abdomen pelvis wo con Accession Number(s): [id number] cc: MANOLO PENDLETON MD CT ABDOMEN AND PELVIS WITHOUT CONTRAST INDICATION / CLINICAL INFORMATION: RENAL STONE PROTOCOL!! RIGHT flank pain, urine retention. TECHNIQUE: Axial CT images were obtained through the abdomen and pelvis without IV contrast. All CT scans at this location are performed using CT dose reduction for ALARA by means of automated exposure control. COMPARISON: Ultrasound renal dated 02/25/19 FINDINGS: LOWER CHEST: No significant abnormality. LIVER: No significant abnormality. GALLBLADDER: Several small calcified gallstones without gallbladder wall thickening or inflammation. BILE DUCTS: No significant abnormality. PANCREAS: Multilobulated cystic lesion in the head/uncinate process of the pancreas. Lesion measures 4.2 x 4.4 x 5.8 cm. No definite focal soft tissue component or calcification. Mild pancreatic atrophy of the remainder of the gland. No pancreatic ductal dilatation. SPLEEN: No significant abnormality. ADRENALS: No significant abnormality. RIGHT KIDNEY and URETER: No significant abnormality. LEFT KIDNEY and URETER: No significant abnormality. STOMACH and SMALL BOWEL: No significant abnormality. COLON: No significant abnormality. APPENDIX: No significant abnormality. PERITONEUM: No free fluid. No free air. No fluid collection. LYMPH NODES: No significant adenopathy. AORTA and ARTERIES: Mild atherosclerotic calcification without acute ab normality. IVC and VEINS: No significant abnormality. URINARY BLADDER: No significant abnormality. REPRODUCTIVE ORGANS: Prostate is mildly enlarged. ADDITIONAL FINDINGS: None. SKELETAL SYSTEM: No significant abnormality. IMPRESSION: 1. No urinary tract stones or hydronephrosis. 2. No inflammatory process or bowel obstruction. 3. Cystic lesion in the head of the pancreas. Follow-up CT abdomen without and with contrast pancreatic protocol is recommended in 6 months. Signer Name: Concha Garnett MD Signed: 07/24/2019 2:42 AM Workstation Name: [email or web address] - Medical Decision Making Patient is 78-year-old male who is complaining of low back pain that he states is mostly in the right flank was generalized as well. He states he has some urinary retention. The symptoms were worrisome for cauda equina however was noted that the patient not actually have urinary retention. Patient has no fecal incontinence and has rectal tone. CT shows the patient has no obstructive uropathy. Patient likely just with a exacerbation of his chronic pain. Emerge nt conditions have been ruled out successfully in the emergency department today. Patient's pain was controlled. Patient was quite tachycardic on arrival however after pain control his heart rate has normalized. Critical care attestation.: If time is entered above; I have spent that time in minutes in the direct care of this critically ill patient, excluding procedure time. ED Disposition Clinical Impression: Acute exacerbation of chronic low back pain Disposition: DC-01 TO HOME OR SELFCARE Is pt being admited?: No Does the pt Need Aspirin: No Condition: Stable Instructions: Acute Low Back Pain (ED), Lumbar Radiculopathy (ED) Referrals: DOMENICA COTTON MD [Staff Physician] - 3-5 Days Time of Disposition: 04:17
[2019-07-24] MEDS ORDERED: METOPROLOL TARTRATE 5 MG/5 ML INJ IV ONE (11:26)
--- NOTE | 2019-07-24 11:28 | Emergency Department Report ---
Blank Doc - Documentation Documentation: 78-year-old male seen overnight by Dr. Tereso Enriquez for acute exacerbation of chronic back pain after unremarkable ED work-up has been awaiting [facility] since discharge. At time of EMS arrival patient now is in A. fib with RVR with heart rate ranging from 120-150. Patient does complain of continued ongoing lower back pain worse with movement. He does not complain of chest pain or shortness of breath. Patient has not received his cardiac m edications since being in the ED with total stay of greater than 9 hours at this point. As a medical record release from February patient is on Eliquis and metoprolol for chronic atrial fibrillation. I requested for nurse to update current medication list. EKG and Lopressor IV ordered ekg afib rate 100 LAFB, no ischemic findings hr improved after Lopressor 5mg IV bp normal normal range after med pt provided percocet 5mg po for pain pt has chronic atrial fibrillation with RVR in the ED likely secondary to not having his prescribed meds given. Patient was evaluated for his back pain by pr evious provider. Patient will now be discharged back to [facility]
[2019-07-24] MEDS ORDERED: oxyCODONE /ACETAMINOPHEN 5-325MG TAB PO ONE (11:44)
[2019-07-24 12:15] VITALS: BP 123/91
== END 2019-07-24 13:00 | disposition home or self-care (01) ==
LOC: ED 01:30
DX: M54.5 Low back pain (principal); I48.91 Unspecified atrial fibrillation; E11.9 Type 2 diabetes mellitus without complications; I11.0 Hypertensive heart disease with heart failure; I50.9 Heart failure, unspecified; J44.9 Chronic obstructive pulmonary disease, unspecified; M19.90 Unspecified osteoarthritis, unspecified site; Z79.82 Long term (current) use of aspirin; Z79.899 Other long term (current) drug therapy; Z98.890 Other specified postprocedural states; Z88.8 Allergy status to other drugs, medicaments and biological substances
CPT/HCPCS: 36415; 74176; 80048; 81001; 85025; 93005; 93010; 96374; 96375; 99284; J1885; J2270